=== PATIENT | female | born 1975 | race Caucasian/White ===

== ENCOUNTER → 2020-07-30 07:55 | Outpatient (CLI) | payer BC, SELFPAY ==
[2020-07-30 09:01] LABS: Chloride 100 mmol/L (98-107)
[2020-07-30 09:02] LABS: Basophils # 0.1 K/mm3 (0-0.2); Basophils % 0.9 % (0.1-2.0); Eosinophils # 0.4 K/mm3 (0.0-0.4); Eosinophils % 4.2 % (0.1-12.0); Hematocrit 45.6 % (37.0-47.0); Hemoglobin 14.5 g/dL (12.2-16.2); Lymphocytes % 19.6 % (10-50); Mean Corpuscular HGB Conc 31.9 g/dL (31.8-35.4); Mean Corpuscular Hemoglobin 27.3 pg (27.0-31.2); Mean Corpuscular Volume 85.6 fl (81-99); Mean Platelet Volume 7.6 fl (7.4-10.4); Monocytes # 0.5 K/mm3 (0.1-1.0); Monocytes % 4.5 % (1.7-9.3); Neutrophils # 7.2 K/mm3 (1.8-7.8); Neutrophils % 70.9 % (37.0-80.0); Platelet Count 333 K/mm3 (142-424); Red Blood Count 5.33 M/mm3 (4.20-5.40); Red Cell Distribution Width 14.9 % (11.5-17.5); Sodium 140 mmol/L (136-145); White Blood Count 10.2 K/mm3 (4.8-10.8)
[2020-07-30 09:04] LABS: Alanine Aminotransferase 12 U/L (12-78); Alkaline Phosphatase 72 U/L (38-126); Aspartate Amino Transferase 24 U/L (14-36); Bilirubin,Total 0.5 mg/dl (0.2-1.3); Blood Urea Nitrogen 19 mg/dl (7-17); Carbon Dioxide 33 mmol/L (22.0-30.0); Cholesterol 159 mg/dl (140-200); Estimated Glomerular Filt Rate 90 ml/min (>60); GFR (African American) 109 ML/MIN (>60); Triglycerides 83 mg/dl (30-150); VLDL Cholesterol 17 mg/dL (0-40)
[2020-07-30 09:05] LABS: Albumin Level 4.2 g/dl (3.5-5.0); Albumin/Globulin Ratio 1.9 (1.1-1.8); Chol/HDL Ratio 2.9 (1-3.5); Globulin 2.2 g/dL (1.3-3.2); Glucose 98 mg/dl (74-100); HDL Cholesterol 54 mg/dl (40-60); Iron 70 ug/dL (37-170); Total Protein,Serum 6.4 g/dl (6.3-8.2)
[2020-07-30 09:33] LABS: 25-OH Vitamin D, Total 26.1 ng/mL (30-100)
[2020-07-30 09:34] LABS: Direct LDL Cholesterol 95.79 mg/dL (100-129)
[2020-07-30 10:48] LABS: Folate 6.83 ng/mL; Vitamin B12 1000 pg/mL (239-931)
== END ==
PROVIDERS: Visit Provider Family Medicine
DX: I10 Essential (primary) hypertension (principal); F41.1 Generalized anxiety disorder; Z98.84 Bariatric surgery status
CPT/HCPCS: 36415; 80053; 80061; 82306; 82607; 82746; 83540; 85025

== ENCOUNTER → 2021-10-17 09:02 | Outpatient (CLI) | payer BC, SELFPAY ==
--- NOTE | 2021-10-18 10:10 | PC.NURSE ---
notified pt of positive covid swab
--- NOTE | 2021-10-18 12:07 | PC.NURSE ---
notified pt of positive COVID test results at this time
== END ==
PROVIDERS: PCP Family Medicine; Visit Provider Nurse Practitioner
DX: U07.1 COVID-19 (principal)
CPT/HCPCS: C9803; U0003; U0005

== ENCOUNTER → 2021-10-26 11:55 | Outpatient (CLI) | payer BC, SELFPAY | PROVIDERS: PCP Family Medicine; Visit Provider Nurse Practitioner | DX: U07.1 COVID-19 (principal) | CPT/HCPCS: C9803; U0003; U0005 ==

== ENCOUNTER → 2022-01-17 14:24 | Outpatient (CLI) | payer BC, SELFPAY ==
--- NOTE | 2022-01-17 14:32 | XR_ITS ---
FINAL REPORT CLINICAL HISTORY: SHOULDER PAIN FINDINGS: LEFT SHOULDER 3 views demonstrate no acute fracture or dislocation. There is mild AC joint degenerative change. The visualized bony structures are well aligned. No soft tissue abnormality is seen. IMPRESSION: Mild AC joint degenerative change. Reviewed, Interpreted and Dictated by Magdi Alonso III, MD Transcribed by Trace Montiel Authenticated by Magdi Alonso III, MD on 01/17/2022 03:39:58 PM [facility]
--- NOTE | 2022-01-17 14:32 | XR_ITS ---
FINAL REPORT CLINICAL HISTORY: SHOULDER PAIN FINDINGS: RIGHT SHOULDER 3 views demonstrate no acute fracture or dislocation. The joint spaces appear normal. The visualized bony structures are well aligned. No soft tissue abnormality is seen. IMPRESSION: No acute process. Reviewed, Interpreted and Dictated by Magdi Alonso III, MD Transcribed by Trace Montiel Authenticated by Magdi Alonso III, MD on 01/17/2022 03:39:45 PM [facility]
== END ==
LOC: RAD 14:26
PROVIDERS: PCP Nurse Practitioner Family; Visit Provider Nurse Practitioner Family
DX: M25.511 Pain in right shoulder (principal); M25.512 Pain in left shoulder
CPT/HCPCS: 73030

== ENCOUNTER → 2022-01-30 15:11 | Outpatient (CLI) | payer BC, SELFPAY ==
--- NOTE | 2022-01-30 15:13 | US_ITS ---
FINAL REPORT CLINICAL HISTORY: RT GROIN PAIN did not include tech note image in exam *Tech note: several lymph nodes in rt groin/area of pain. 1 enlarged lymph node. FINDINGS: ULTRASOUND SOFT TISSUE RIGHT GROIN Sonographic images of the soft tissues of the right groin were obtained. There are several lymph nodes in the right inguinal region. The largest measures 2 cm in length. These have the appearance of reactive nodes. No other mass is identified. There is no abnormal fluid collection. IMPRESSION: Several lymph nodes in the right inguinal region appear to be reactive nodes. Reviewed, Interpreted and Dictated by Magdi Alonso III, MD Transcribed by Denia Powell Authenticated by Magdi Alonso III, MD on 01/31/2022 09:17:32 AM [facility]
== END ==
PROVIDERS: PCP Nurse Practitioner Family; Visit Provider Nurse Practitioner Family
DX: R10.31 Right lower quadrant pain (principal)
CPT/HCPCS: 76882

== ENCOUNTER → 2022-02-15 07:35 | Outpatient (CLI) | payer BC, SELFPAY ==
--- NOTE | 2022-02-15 07:40 | CT_ITS ---
FINAL REPORT CLINICAL HISTORY: GROIN PAIN RT FINDINGS: CT OF THE ABDOMEN AND PELVIS WITH CONTRAST Axial CT images of the abdomen and pelvis were obtained after the administration of IV contrast. Coronal reformatted images were also obtained and reviewed.This study was performed with techniques to keep radiation doses as low as reasonably achievable (ALARA). Individualized dose reduction techniques using automated exposure control or adjustment of mA and/or kV according to the patient's size were employed. Abdomen: The lung bases are clear. The heart is normal in size. The liver has an unremarkable appearance, without evidence of mass or biliary ductal dilatation. There are large gallstones in the gallbladder with mild wall thickening and a small amount of Lia cholecystic fluid. Acute cholecystitis is not excluded. The spleen is unremarkable. No adrenal mass is present. The pancreas has an unremarkable appearance. The kidneys are normal, without evidence of mass or hydronephrosis. The aorta is normal in caliber. There is no free fluid or adenopathy. No mass or abnormal fluid collection is seen. There are postoperative changes in the left upper quadrant. Pelvis: The appendix is not well-visualized. The urinary bladder is unremarkable. An IUD is in the uterus. There are several small and borderline sized left inguinal lymph nodes with a nonspecific appearance and may be reactive. There is no evidence of bowel obstruction. IMPRESSION: Large gallstones within the gallbladder with mild wall thickening and a small amount of Lia cholecystic fluid. Acute cholecystitis not excluded. Nuclear medicine hepatic biliary scan may be helpful. Several small borderline size left inguinal lymph nodes with nonspecific appearance and may be reactive. Reviewed, Interpreted and Dictated by Magdi Alonso III, MD Transcribed by Lennie Gramajo Authenticated by Magdi Alonso III, MD on 02/15/2022 10:15:37 AM [facility]
== END ==
LOC: RAD 07:35
PROVIDERS: PCP Nurse Practitioner Family; Visit Provider Nurse Practitioner Family
DX: R10.31 Right lower quadrant pain (principal)
CPT/HCPCS: 74177; Q9967

== ENCOUNTER → 2022-03-15 16:29 | Outpatient (CLI) | payer BC, SELFPAY ==
--- NOTE | 2022-03-15 16:36 | XR_ITS ---
PROCEDURE INFORMATION: Exam: XR Right Hip Exam date and time: 03/15/2022 4:38 PM Age: 46 years old Clinical indication: Hip pain; Right hip; Patient HX: Pain for a long amount of time TECHNIQUE: Imaging protocol: XR Right hip. Views: 2 or 3 views hip with pelvis when performed. COMPARISON: CT ABDOMEN PELVIS W CON 02/15/2022 8:06 AM FINDINGS: Bones/joints: Mild bilateral hip joint space narrowing. Small right femoral head osteophytes. SI joints and pubic symphysis are unremarkable. No acute fracture or dislocation. Soft tissues: Unremarkable. Organs: IUD projects over the central pelvis. IMPRESSION: Mild bilateral hip degenerative change.
--- NOTE | 2022-03-15 16:37 | XR_ITS ---
PROCEDURE INFORMATION: Exam: XR Lumbosacral Spine Exam date and time: 03/15/2022 4:38 PM Age: 46 years old Clinical indication: Low back pain; Patient HX: No known injury TECHNIQUE: Imaging protocol: XR of the lumbosacral spine. Views: 2 or 3 views. COMPARISON: CT ABDOMEN PELVIS W CON 02/15/2022 8:06 AM FINDINGS: Bones/joints: No acute fracture or spondylolisthesis. Disc spaces are preserved. Minor endplate osteophyte formation at multiple levels. Mild facet arthrosis at L5-S1. The SI joints are unremarkable. Soft tissues: Unremarkable. IMPRESSION: Minor/mild degenerative changes.
== END ==
LOC: RAD 16:30
PROVIDERS: PCP Family Medicine; Visit Provider Physician Assistant
DX: M54.50 Low back pain, unspecified (principal); M25.551 Pain in right hip
CPT/HCPCS: 72100; 73502

== ENCOUNTER → 2022-05-16 10:57 | Outpatient (CLI) | payer BC, SELFPAY ==
--- NOTE | 2022-05-16 10:57 | FL_ITS ---
FINAL REPORT CLINICAL HISTORY: right hip injection fluoro time-0.37 FINDINGS: Right hip injection Clinical history: Right hip pain. Findings: Fluoroscopy was provided for clinical service and performance of right hip injection. 0.37 minutes of fluoroscopy time was provided. IMPRESSION: Fluoroscopy provided for clinical service for right hip injection. Films reviewed , interpreted and dictated by Dr. Alonso Transcribed by Kraig Kahn PA-C. Reviewed, Interpreted and Dictated by Magdi Alonso III, MD Transcribed by CHUYITA Pizarro Authenticated and [facility]
--- NOTE | 2022-05-17 01:01 | P.PCN_ITS ---
[facility] Procedure Note Procedure Note:: Date of Procedure: 05/16/2022 Pre-procedure diagnosis: Osteoarthritis, right hip Post-procedure diagnosis: Osteoarthritis, right hip Procedure: intraarticular corticosteroid injection, right hip Performed by: Westley Moseley MD Zinc Miner Blasting/s: none Anesthesia: local; 10 cc 1% lidocaine w/o epinephrine Estimated Blood Loss: none Procedure Note: The patient presented to the radiology department and changed into a gown. Consent was reviewed and signed by both myself and the patient, all questions were answered. The patient was placed supine on the fluoroscopy table and the right hip exposed. The lateral hip and proximal thigh were prepped with chlorhexidine. Timeout was performed. Next, the fluoro machine was brought in over the patient?s hip and a picture taken to confirm adequate visualization of the joint. I donned a pair of sterile surgical gloves; the remainder of the procedure was performed in a sterile fashion. A 22G spinal needle was held over the hip to approximate my desired entry point on the skin. Once this was established, a 25G needle was used to infiltrate injection site and estimated needle track with 10cc 1% lidocaine w/o epinephrine. Once the injection site was anesthetized, the spinal needle was advanced through the same puncture site and deeper towards the hip joint. Using fluoro guidance, it was confirmed that the needle was advanced until it was at the level of the femoral neck. The stylus was removed from the spinal needle and 3cc of iodinated contrast solution was injected through the spinal needle. Fluoro was taken again, and the dye confirmed intra-capsular placement of the spinal needle, indicating a successful intraarticular injection. The syringe with contrast was removed, keeping the spinal needle in place, and 40 mg of Kenalog with 4 cc 1% lidocaine w/o epinephrine was injected through the needle into the hip joint. A final fluoro picture was taken, confirming successful intraarticular injection. The spinal needle was removed from the hip and a band-aid was placed over the injection site. Patient tolerated the procedure well and there were no immediate complications. Patient reported very good pain relief within a few minutes after the injection. Specimens: none Condition/Disposition: good / home Complications: none
== END ==
LOC: RAD 10:57
PROVIDERS: PCP Family Medicine; Visit Provider Orthopaedic Surgery
DX: M25.551 Pain in right hip (principal)
CPT/HCPCS: 20610; 77002; Q9967

== ENCOUNTER → 2022-07-19 07:34 | Outpatient (CLI) | payer BC, SELFPAY ==
--- NOTE | 2022-07-19 07:35 | MM_ITS ---
PROCEDURE INFORMATION: Exam: Bilateral Screening 3D Mammography Exam date and time: 07/19/2022 7:50 AM Age: 47 years old Clinical indication: Screening examination TECHNIQUE: Imaging protocol: Bilateral Screening tomosynthesis and 2D mammography including computer-aided detection (CAD) when performed. COMPARISON: [facility] DIG MAMM-SCREEN AJIT 05/05/2014 8:47 AM FINDINGS: MAMMOGRAPHY: Breast composition: There are scattered areas of fibroglandular density. Mass: None. Architectural distortion: None. Calcifications: No suspicious calcifications. Asymmetric density: None. Skin thickening: None. Axillary adenopathy: None. IMPRESSION: No mammographic evidence of malignancy. Annual screening is recommended unless otherwise clinically indicated. ASSESSMENT: BI-RADS Category 1: Negative
== END ==
PROVIDERS: PCP Physician Assistant; Visit Provider Nurse Practitioner Obstetrics & Gynecology
DX: Z12.31 Encounter for screening mammogram for malignant neoplasm of breast (principal)
CPT/HCPCS: 77063; 77067

== ENCOUNTER 2022-07-27 17:00 | Outpatient (RCR) | payer BC, SELFPAY ==
--- NOTE | 2022-06-21 14:57 | HMH.PTOPEV ---
PT Outpatient Evaluation Rehab PT Outpatient Evaluation Start: 06/21/22 13:52 Freq: Status: Active Protocol: Document 06/21/22 14:05 SHANIACHARLA (Rec: 06/21/22 14:56 SHANIACHARLA [id number]) Electronically Signed By Omar Gottlieb PT 06/21/22 14:05 Outpatient Therapy Subjective History Subjective History This is the initial Physical Therapy evaluation for Sri CatrachitoWang. Pt is a 46 y/o female referred to PT for c/o R hip pain. Pt c/o R hip pain for ~ one and a half years. Pt reports insidious onset w/ no known trauma to hip. Pt does report she has had multiple scans of her hip which show degeneration per patient. Pt reports trouble w / ADL's and stairs. Pt does report when the pain stabs it can cause her RLE to buckle . Chief Complaint Pain,Stiff,Catches/Locks,Gives out/Unstable Symptom Type Ache,Sharp,Dull,Stabbing Symptoms Relieved By Nothing Symptoms Aggravated By Standing,Physical Activity, Twisting,Walking Prior Functional Limitations None Current Functional Limitations Housework,Dressing,Driving, Sleeping,Standing,Squatting, Recreation Activity,Walking, Stairs Symptom Description Intermittent Level of pain today (0-10) 2 Pain scale - at its best (0-10) 0 Pain scale - at its worst (0-10) 8 Hip/Knee Eval Gait Observation General Gait Pattern Observation Antalgic Gait,Decrease Weight Bear (R),Decrease Stride Lngth (R),Decrease Stride Lngth (L) Assistive Device Assistive Devices None / NA Palpation Tenderness right Hip Palpation Findings Tenderness,Muscle Guarding MMT Hip Strength Reason Not Measured WFL ROM Hip Internal Rotation Active Range of 1/2 opp side Motion (degrees) Hip Internal Rotation Passive Range of 1/2 opp side prone Motion (degrees) Hip ROM Limitations Soft Tissue Tightness,Bony Restrictions,Tightness on Right,Pain on Right Special Tests Hip Chyna Test Positive Right Hip 90-90 Straight Leg Raise Test Negative Right Sciatic Nerve Tension Test Negative Right Hip Scouring (Quadrant) Test Positi
== END 2022-07-27 17:05 | disposition home or self-care (01) ==
LOC: PT 17:00
PROVIDERS: PCP Family Medicine; Visit Provider Physician Assistant
DX: M25.551 Pain in right hip (principal)
CPT/HCPCS: 97110; 97163

== ENCOUNTER → 2022-07-30 06:54 | Outpatient (CLI) | payer BC, SELFPAY ==
[2022-07-30 07:58] LABS: Basophils # 0.2 K/mm3 (0-0.2); Basophils % 1.5 % (0.1-2.0); Eosinophils # 0.3 K/mm3 (0.0-0.4); Eosinophils % 2.5 % (0.1-12.0); Hematocrit 45.3 % (37.0-47.0); Hemoglobin 14.2 g/dL (12.2-16.2); Lymphocytes # 2.9 K/mm3 (0.7-4.5); Lymphocytes % 26.2 % (10-50); Mean Corpuscular HGB Conc 31.4 g/dL (31.8-35.4); Mean Corpuscular Hemoglobin 26.5 pg (27.0-31.2); Mean Corpuscular Volume 84.5 fl (81-99); Mean Platelet Volume 7.7 fl (7.4-10.4); Monocytes # 0.6 K/mm3 (0.1-1.0); Neutrophils # 7.3 K/mm3 (1.8-7.8); Neutrophils % 64.9 % (37.0-80.0); Platelet Count 513 K/mm3 (142-424); Red Blood Count 5.36 M/mm3 (4.20-5.40); Red Cell Distribution Width 14.6 % (11.5-17.5); White Blood Count 11.3 K/mm3 (4.8-10.8)
[2022-07-30 08:11] LABS: Chloride 105 mmol/L (98-107)
[2022-07-30 08:12] LABS: Potassium 4.5 mmoL/L (3.5-5.1); Sodium 140 mmol/L (136-145)
[2022-07-30 08:14] LABS: Alanine Aminotransferase 16 U/L (12-78); Albumin Level 4.1 g/dl (3.5-5.0); Albumin/Globulin Ratio 1.7 (1.1-1.8); Alkaline Phosphatase 148 U/L (38-126); Anion Gap 12.5 mEq/L (5-15); Aspartate Amino Transferase 26 U/L (14-36); Blood Urea Nitrogen 23 mg/dl (7-17); Carbon Dioxide 27 mmol/L (22.0-30.0); Estimated Glomerular Filt Rate 89 ml/min (>60); GFR (African American) 108 ML/MIN (>60); Globulin 2.4 g/dL (1.3-3.2); Total Protein,Serum 6.5 g/dl (6.3-8.2)
[2022-07-30 08:15] LABS: Bilirubin,Total 0.1 mg/dl (0.2-1.3); Calcium 8.9 mg/dl (8.4-10.2); Chol/HDL Ratio 3.2 (1-3.5); Cholesterol 160 mg/dl (140-200); Glucose 98 mg/dl (74-100); HDL Cholesterol 50 mg/dl (40-60); Triglycerides 69 mg/dl (30-150); VLDL Cholesterol 14 mg/dL (0-40)
[2022-07-30 08:32] LABS: Triiodothryronine (T3) Uptake 31 % (23.5-40.5)
[2022-07-30 08:33] LABS: Free Thyroxine Index 2.2 ug/dL (5.93-13.13); T4 (Thyroxine) 7.1 ug/dl (5.53-11.0)
[2022-07-30 08:46] LABS: Thyroid Stimulating Hormone 2.55 uIU/mL (0.465-4.68)
[2022-07-30 08:47] LABS: Direct LDL Cholesterol 92.23 mg/dL (100-129)
== END ==
PROVIDERS: PCP Family Medicine; Visit Provider Nurse Practitioner Obstetrics & Gynecology
DX: R53.83 Other fatigue (principal)
CPT/HCPCS: 36415; 80053; 80061; 84436; 84443; 84479; 85025

== ENCOUNTER → 2022-08-16 11:47 | Outpatient (CLI) | payer BC, SELFPAY ==
--- NOTE | 2022-08-16 11:48 | FL_ITS ---
FINAL REPORT CLINICAL HISTORY: 0.20 fluoro time Right hip steroid injection. Injected by Dr. Moseley FINDINGS: Fluoroscopy History:. Hip pain Findings: A total of 0.2 minutes of fluoroscopy time was provided by the radiology department for the clinical service. 3 fluoroscopic spot films were obtained for hip injection. IMPRESSION: Fluoroscopy time as above. Please see operative report. Films reviewed , interpreted and dictated by Dr. Bangura. Transcribed by Justino Gibson PA-C. Reviewed, Interpreted and Dictated by Marjorie Bangura MD Transcribed by CHUYITA Mcfadden Authenticated and [facility]
--- NOTE | 2022-08-16 16:47 | EXP.PROC.NOT ---
Procedure Procedure Procedure: Procedure Note:: Date of Procedure: 08/16/2022 Pre-procedure diagnosis: Osteoarthritis, right hip Post-procedure diagnosis: Osteoarthritis, right hip Procedure: intraarticular corticosteroid injection, right hip Performed by: Westley Moseley MD Sustainable Design Coordinator/s: none Anesthesia: local; 10 cc 1% lidocaine w/o epinephrine Estimated Blood Loss: none Procedure Note: The patient presented to the radiology department and changed into a gown. Consent was reviewed and signed by both myself and the patient; all questions were answered. The patient was placed supine on the fluoroscopy table and the right hip exposed. The lateral hip and proximal thigh were prepped with chlorhexidine. Timeout was performed. Next, the fluoro machine was brought in over the patient?s hip and a picture taken to confirm adequate visualization of the joint. I donned a pair of sterile surgical gloves; the remainder of the procedure was performed in a sterile fashion. A 22G spinal needle was held over the hip to approximate my desired entry point on the skin. Once this was established, a 25G needle was used to infiltrate injection site and estimated needle track with 10cc 1% lidocaine w/o epinephrine. Once the injection site was anesthetized, the spinal needle was advanced through the same puncture site and deeper towards the hip joint. Using fluoro guidance, it was confirmed that the needle was advanced until it was at the level of the femoral neck. The stylus was removed from the spinal needle and 1cc of iodinated contrast solution was injected through the spinal needle. Fluoro was taken again, and the dye confirmed intra-capsular placement of the spinal needle tip. The syringe with contrast was removed, keeping the spinal needle in place, and 6 mg of betamethasone with 4 cc 1% lidocaine w/o epinephrine was injected through the needle into the hip joint. A final fluoro picture was taken, confirming successful intraarticular injection. The spinal needle was removed from the hip and a band-aid was placed over the injection site. Patient tolerated the procedure well and there were no immediate complications. Patient reported very good pain relief within a few minutes after the injection. Specimens: none Condition/Disposition: good / home Complications: none
--- NOTE | 2022-08-17 15:05 | HMH.PROCNOTE ---
[facility] Procedure Note Date: 08/16/22 Procedure Note:: Date of Procedure: 08/16/2022 Pre-procedure diagnosis: Osteoarthritis, right hip Post-procedure diagnosis: Osteoarthritis, right hip Procedure: intraarticular corticosteroid injection, right hip Performed by: Westley Moseley MD Coil Winder Strap/s: none Anesthesia: local; 10 cc 1% lidocaine w/o epinephrine Estimated Blood Loss: none Procedure Note: The patient presented to the radiology department and changed into a gown. Consent was reviewed and signed by both myself and the patient, all questions were answered. The patient was placed supine on the fluoroscopy table and the right hip exposed. The lateral hip and proximal thigh were prepped with chlorhexidine. Timeout was performed. Next, the fluoro machine was brought in over the patient?s hip and a picture taken to confirm adequate visualization of the joint. I donned a pair of sterile surgical gloves; the remainder of the procedure was performed in a sterile fashion. A 22G spinal needle was held over the hip to approximate my desired entry point on the skin. Once this was established, a 25G needle was used to infiltrate injection site and estimated needle track with 10cc 1% lidocaine w/o epinephrine. Once the injection site was anesthetized, the spinal needle was advanced through the same puncture site and deeper towards the hip joint. Using fluoro guidance, it was confirmed that the needle was advanced until it was at the level of the femoral neck. The stylus was removed from the spinal needle and 1cc of iodinated contrast solution was injected through the spinal needle. Fluoro was taken again, and the dye confirmed intra-capsular placement of the spinal needle. The syringe with contrast was removed, keeping the spinal needle in place, and 6 mg of betamethasone with 4 cc 1% lidocaine w/o epinephrine was injected through the needle into the hip joint. A final fluoro picture was taken, confirming successful intraarticular injection. The spinal needle was removed from the hip and a band-aid was placed over the injection site. Patient tolerated the procedure well and there were no immediate complications. Patient reported very good pain relief within a few minutes after the injection. Specimens: none Condition/Disposition: good / home Complications: none
== END ==
LOC: RAD 11:48
PROVIDERS: PCP Orthopaedic Surgery; Visit Provider Orthopaedic Surgery
DX: M16.11 Unilateral primary osteoarthritis, right hip (principal)
CPT/HCPCS: 20610; 77002

== ENCOUNTER 2022-09-19 23:22 | Observation (INO) | payer BC, SELFPAY ==
[2022-09-19 23:22] VITALS: BP 119/67; PULSE 78; RESP 16; TEMP 36.6; O2SAT 97; BMI 29.0
--- NOTE | 2022-09-19 23:38 | CT_ITS ---
PROCEDURE INFORMATION: Exam: CT Abdomen And Pelvis With Contrast Exam date and time: 09/19/2022 11:46 PM Age: 47 years old Clinical indication: Abdominal pain; Localized; Prior surgery; Surgery type: Gastric bypass; Patient HX: C/O upper abd pain x3 days TECHNIQUE: Imaging protocol: Computed tomography of the abdomen and pelvis with contrast. Radiation optimization: All CT scans at this facility use at least one of these dose optimization techniques: automated exposure control; mA and/or kV adjustment per patient size (includes targeted exams where dose is matched to clinical indication); or iterative reconstruction. Contrast material: ISOVUE; Contrast volume: 75 ml; Contrast route: IV; COMPARISON: CT ABDOMEN PELVIS W CON 02/15/2022 8:06 AM FINDINGS: Liver: Normal. No mass. Gallbladder and bile ducts: Distended gallbladder with gallbladder wall thickening and calcified gallstones concerning for acute cholecystitis. Pancreas: Normal. No ductal dilation. Spleen: Normal. No splenomegaly. Adrenal glands: Normal. No mass. Kidneys and ureters: Normal. No hydronephrosis. Stomach and bowel: Postsurgical changes status post gastric bypass. No colitis or small bowel obstruction. Appendix: Normal appendix. Intraperitoneal space: Unremarkable. No free air. No significant fluid collection. Vasculature: Unremarkable. No abdominal aortic aneurysm. Lymph nodes: Unremarkable. No enlarged lymph nodes. Urinary bladder: Urinary bladder not well distended. Reproductive: IUD. Bones/joints: Unremarkable. No acute fracture. Soft tissues: Unremarkable. IMPRESSION: Distended gallbladder with gallbladder wall thickening and calcified gallstones concerning for acute cholecystitis.
[2022-09-19 23:45] LABS: Microscopic, Urine URINE MICROSCOPIC (MICROSCOPIC)
[2022-09-19 23:46] LABS: Appearance,Urine CLEAR (Clear); Bilirubin,Urine Negative (Negative); Blood, Urine TRACE-L (Negative); Color,Urine YELLOW (Yellow); Glucose,Urine (UA) 1+ (Negative); Ketones,Urine Negative (Negative); Leukocyte Esterase,Urine Negative (Negative); Nitrate,Urine Negative (Negative); Protein,Urine Negative (Negative); Specific Gravity, Urine >= 1.030 (1.005-1.030)
[2022-09-19 23:49] LABS: Urine Pregnancy, HCG Qual. Negative (Negative)
--- NOTE | 2022-09-19 23:54 | PC.NURSE ---
Pt gone to scan at this time
--- NOTE | 2022-09-19 23:56 | PC.NURSE ---
Pt back in room at this time
[2022-09-20] VITALS (18 sets, daily range): BP systolic 111–132; BP diastolic 55–71; PULSE 58–85; RESP 14–24; TEMP 36.6–43; O2SAT 93–99; BMI 29.3
[2022-09-20 00:02] LABS: Basophils # 0.1 K/mm3 (0-0.2); Eosinophils # 0.5 K/mm3 (0.0-0.4); Eosinophils % 3.3 % (0.1-12.0); Hematocrit 42.1 % (37.0-47.0); Hemoglobin 13.4 g/dL (12.2-16.2); Lymphocytes # 2.3 K/mm3 (0.7-4.5); Lymphocytes % 16.7 % (10-50); Mean Corpuscular Volume 84.4 fl (81-99); Mean Platelet Volume 7.7 fl (7.4-10.4); Monocytes # 0.7 K/mm3 (0.1-1.0); Neutrophils # 10.4 K/mm3 (1.8-7.8); Neutrophils % 74.1 % (37.0-80.0); Platelet Count 440 K/mm3 (142-424); Red Blood Count 4.98 M/mm3 (4.20-5.40); Red Cell Distribution Width 15.2 % (11.5-17.5)
[2022-09-20 00:03] LABS: RBC,Urine Occasional #/hpf (0-3)
[2022-09-20 00:03] LABS: Chloride 98 mmol/L (98-107); Potassium 3.2 mmoL/L (3.5-5.1); Sodium 140 mmol/L (136-145)
[2022-09-20 00:05] LABS: Amylase 56 U/L (30-110)
[2022-09-20 00:06] LABS: Alanine Aminotransferase 17 U/L (12-78); Albumin Level 4.1 g/dl (3.5-5.0); Albumin/Globulin Ratio 1.6 (1.1-1.8); Alkaline Phosphatase 108 U/L (38-126); Anion Gap 14.2 mEq/L (5-15); Aspartate Amino Transferase 25 U/L (14-36); Bilirubin,Total 0.3 mg/dl (0.2-1.3); Blood Urea Nitrogen 26 mg/dl (7-17); Calcium 9.4 mg/dl (8.4-10.2); Carbon Dioxide 31 mmol/L (22.0-30.0); Creatinine Clearance Estimated 146 mL/min (50-200); Estimated Glomerular Filt Rate 106 ml/min (>60); GFR (African American) 129 ML/MIN (>60); Globulin 2.5 g/dL (1.3-3.2); Glucose 76 mg/dl (74-100); Lipase 105 U/L (23-300); Total Protein,Serum 6.6 g/dl (6.3-8.2)
--- NOTE | 2022-09-20 00:52 | PC.NURSE ---
Rechecked pt condition. Pt provided with blanket. No other needs or complaints voiced.
--- NOTE | 2022-09-20 01:09 | HMH.EDABDPAI ---
Discharge Plan Disposition Patient Disposition: Admitted as Observation Chief Complaint: Abdominal Pain Prescriptions Prescriptions: No Action hydroxyzine HCl 25 mg tablet 25 mg PO aripiprazole 5 mg tablet 5 mg PO Referrals Follow up/Referrals: Cortez Blood MD [Primary Care Provider] - See instructions Clinical Impressions Clinical Impression: Cholecystitis with cholelithiasis, SIRS (systemic inflammatory response syndrome) Instructions Patient Instructions: DI for Acute Abdominal Pain Discharge ED Provider: Hussain Howard Abdominal Pain HPI General Chief Complaint: Abdominal Pain Stated Complaint: Abd Pain Time Seen by Provider: 09/20/22 01:09 Mode of Arrival: Ambulatory Source of Information: Patient and Medical Record Limitations: No Limitations Description of Symptoms (Recalled from ER Triage Doc. by RN): pt c/o RUQ pain with n/v/d that started 2 days History of Present Illness HPI narrative: upper abd pain with n/v MD complaint: abdominal pain Onset (ago): day(s) Consistency: intermittent Location: RUQ Severity: moderate Associated symptoms: denies other symptoms Related Data Home Medications Medication Instructions Recorded Confirmed aripiprazole 5 mg tablet 5 mg PO 07/19/22 09/19/22 hydroxyzine HCl 25 mg tablet 25 mg PO 07/19/22 09/19/22 escitalopram oxalate 20 mg tablet 20 mg PO DAILY Depression 09/20/22 09/20/22 lisinopril 10 mg tablet 10 mg PO DAILY High blood pressure 09/20/22 09/20/22 omeprazole 40 mg capsule,delayed 40 mg PO DAILY GERD 09/20/22 09/20/22 release Allergies Allergy/AdvReac Type Severity Reaction Status Date / Time No Known Allergies Allergy Verified 09/19/22 11:44 [facility] PFS Surgical History Hx of bariatric surgery Social History Smoking Status: Current every day smoker alcohol intake: never current occupational status: employed Travel in the last 8 weeks: None ROS Obtained: Yes All systems reviewed & no additional complaints except as documented Physical Exam General General appearance: alert Head Head exam: normocephalic Eye Eye exam: Present PERRL and EOMI; Absent scleral icterus ENT ENT exam: Present mucous membranes moist Neck Neck exam: Present full ROM Respiratory Respiratory exam: Present normal lung sounds bilaterally; Absent respiratory distress Cardiovascular Cardiovascular exam: Present regular rate Abdominal Exam Abdominal exam: Present soft, tenderness and Shelby's sign Abdominal tenderness: Present RUQ and moderate Extremities Exam Extremities exam: Present full ROM Neurological Exam Neurological exam: Present alert, oriented X3 and CN II-XII intact Psychiatric Psychiatric exam: Present normal affect Skin Skin exam: Absent rash Medical Decision Making Medical Records Medical records reviewed: Yes I reviewed the patient's medical records. Samuel Inquiry Pt receiving controlled substance: No Vital Signs: 09/19/22 23:22 Temperature 97.9 F Temperature Source Oral Pulse Rate [Right] 78 Respiratory Rate 16 Blood Pressure [Right Arm] 119/67 Blood Pressure Mean [Right Arm] 84 02 Sat by Pulse Oximetry 97 Lab Data Lab results reviewed: Yes I reviewed the patient's lab results. Lab Results 09/19/22 23:38: Urine Color Yellow, Urine Appearance Clear, Urine pH 6.0, Ur Specific [place] >= 1.030, Urine Protein Negative, Urine Glucose (UA) 1+, Urine Ketones Negative, Urine Blood Trace-l, Urine Nitrate Negative, Urine Bilirubin Negative, Urine Urobilinogen 1.0, Ur Leukocyte Esterase Negative, Urine RBC Occasional, Urine WBC None, Ur Squamous Epith Cells 3-5, Urine Bacteria None 09/19/22 23:38: Urine HCG, Qual Negative 09/19/22 23:49: WBC 14.0 H, RBC 4.98, Hgb 13.4, Hct 42.1, MCV 84.4, MCH 27.0, MCHC 32.0, RDW 15.2, Plt Count 440 H, MPV 7.7, Neut % (Auto) 74.1, Lymph % (Auto) 16.7, [place] % (Auto)
--- NOTE | 2022-09-20 01:17 | PC.NURSE ---
Dr. Court hill
--- NOTE | 2022-09-20 01:18 | PC.NURSE ---
Dr. Howard speaking to Dr. Yun
[2022-09-20 01:21] LABS: Coronavirus 19, PCR Not Detected (NotDetected); Influenza A, PCR Not Detected (NotDetected); Influenza B, PCR Not Detected (NotDetected)
--- NOTE | 2022-09-20 01:27 | US_ITS ---
FINAL REPORT CLINICAL HISTORY: abn ct- gb dis FINDINGS: Sonographic images of the right upper quadrant were obtained. The pancreas is partially obscured.The liver has an unremarkable appearance. There are gallstones within the gallbladder with gallbladder wall thickening measuring up to 11 mm. There is a small amount of Lia cholecystic fluid. There is no evidence of biliary ductal dilatation.The common duct measures 5 mm. Limited images of the right kidney are unremarkable. IMPRESSION: Cholelithiasis with gallbladder wall thickening and a small amount of pericholecystic fluid, worrisome for acute cholecystitis. Reviewed, Interpreted and Dictated by Magdi Alonso III, MD Transcribed by Lennie Gramajo Authenticated and [facility]
--- NOTE | 2022-09-20 03:30 | PC.NURSE ---
2nd attempt to call report on pt. pt nurse now on break.
--- NOTE | 2022-09-20 04:00 | PC.NURSE ---
patient up to floor via wheelchair @ this time.
[2022-09-20 06:49] LABS: Basophils # 0.1 K/mm3 (0-0.2); Basophils % 0.8 % (0.1-2.0); Eosinophils # 0.4 K/mm3 (0.0-0.4); Eosinophils % 3.5 % (0.1-12.0); Hematocrit 37.3 % (37.0-47.0); Lymphocytes # 2.2 K/mm3 (0.7-4.5); Lymphocytes % 21.6 % (10-50); Mean Corpuscular HGB Conc 31.5 g/dL (31.8-35.4); Mean Corpuscular Hemoglobin 26.6 pg (27.0-31.2); Mean Corpuscular Volume 84.6 fl (81-99); Monocytes # 0.5 K/mm3 (0.1-1.0); Monocytes % 4.8 % (1.7-9.3); Neutrophils # 7.1 K/mm3 (1.8-7.8); Neutrophils % 69.3 % (37.0-80.0); Platelet Count 382 K/mm3 (142-424); Red Cell Distribution Width 15.1 % (11.5-17.5); White Blood Count 10.2 K/mm3 (4.8-10.8)
[2022-09-20 06:59] LABS: Alanine Aminotransferase 11 U/L (12-78); Albumin Level 3.4 g/dl (3.5-5.0); Albumin/Globulin Ratio 1.5 (1.1-1.8); Alkaline Phosphatase 102 U/L (38-126); Aspartate Amino Transferase 20 U/L (14-36); Bilirubin,Total 0.3 mg/dl (0.2-1.3); Blood Urea Nitrogen 26 mg/dl (7-17); Calcium 8.6 mg/dl (8.4-10.2); Carbon Dioxide 31 mmol/L (22.0-30.0); Chloride 100 mmol/L (98-107); Chol/HDL Ratio 2.5 (1-3.5); Cholesterol 113 mg/dl (140-200); Creatinine Clearance Estimated 148 mL/min (50-200); Estimated Glomerular Filt Rate 106 ml/min (>60); GFR (African American) 129 ML/MIN (>60); Globulin 2.2 g/dL (1.3-3.2); Glucose 78 mg/dl (74-100); HDL Cholesterol 46 mg/dl (40-60); Sodium 136 mmol/L (136-145); Total Protein,Serum 5.6 g/dl (6.3-8.2); Triglycerides 42 mg/dl (30-150); VLDL Cholesterol 8 mg/dL (0-40)
[2022-09-20 07:05] LABS: Anion Gap 8.9 mEq/L (5-15); Potassium 3.9 mmoL/L (3.5-5.1)
[2022-09-20 07:10] LABS: Direct LDL Cholesterol 52.14 mg/dL (100-129)
--- NOTE | 2022-09-20 07:39 | EXP.SURG.CON ---
History of Present Illness *Admission Date: 09/20/22 *Reason for visit:: Abnormal gallbladder-cholecystitis *History of present illness: 47-year-old female. She presented to the emergency department early this morning with a 2-day history of intermittent abdominal pain in the right upper quadrant becoming more severe. Described as moderate. Work-up included CBC which revealed a white blood cell count of 14,000 with normal differential. Liver function tests normal. She underwent CT scan which revealed findings of distended gallbladder with gallbladder wall thickening and calcified gallstones. Patient states that she has a history of ulcer . She has had this for 10 years. She underwent laparoscopic gastric bypass 10 years ago in [place]. [facility] Surgical History Hx of bariatric surgery Social History (Updated 09/20/22 @ 04:16 by Breanne Holder RN) Smoking Status: Current every day smoker tobacco type: cigarettes Tobacco counseling given: patient declined alcohol intake: never current occupational status: employed Travel in the last 8 weeks: None Meds Home Medications and Allergies Home Medications Medication Instructions Recorded Confirmed Type aripiprazole 5 mg tablet 10 mg PO DAILY Depression 07/19/22 09/20/22 History hydroxyzine HCl 25 mg tablet 25 mg PO DAILY High blood pressure 07/19/22 09/20/22 History escitalopram oxalate 20 mg tablet 20 mg PO DAILY Depression 09/20/22 09/20/22 History lisinopril 10 mg tablet 10 mg PO DAILY High blood pressure 09/20/22 09/20/22 History omeprazole 40 mg capsule,delayed 40 mg PO DAILY GERD 09/20/22 09/20/22 History release New Prescriptions to Start Prescriptions: Allergies Allergy/AdvReac Type Severity Reaction Status Date / Time No Known Allergies Allergy Verified 09/19/22 11:44 Exam (Inpt) Vital signs and Labs for Last 24 Hours: Temp Pulse Resp BP Pulse Ox 97.9 F 60 18 123/63 97 09/20/22 04:49 09/20/22 04:49 09/20/22 04:49 09/20/22 04:49 09/20/22 04:49 Laboratory Results - last 24 hr 09/19/22 23:38: Urine Color Yellow, Urine Appearance Clear, Urine pH 6.0, Ur Specific [place] >= 1.030, Urine Protein Negative, Urine Glucose (UA) 1+, Urine Ketones Negative, Urine Blood Trace-l, Urine Nitrate Negative, Urine Bilirubin Negative, Urine Urobilinogen 1.0, Ur Leukocyte Esterase Negative, Urine RBC Occasional, Urine WBC None, Ur Squamous Epith Cells 3-5, Urine Bacteria None 09/19/22 23:38: Urine HCG, Qual Negative 09/19/22 23:49: WBC 14.0 H, RBC 4.98, Hgb 13.4, Hct 42.1, MCV 84.4, MCH 27.0, MCHC 32.0, RDW 15.2, Plt Count 440 H, MPV 7.7, Neut % (Auto) 74.1, Lymph % (Auto) 16.7, [place] % (Auto) 5.0, Eos % (Auto) 3.3, Baso % (Auto) 1.0, Neut # (Auto) 10.4 H, Lymph # (Auto) 2.3, [place] # (Auto) 0.7, Eos # (Auto) 0.5 H, Baso # (Auto) 0.1 09/19/22 23:49: Sodium 140, Potassium 3.2 L, Chloride 98, Carbon Dioxide 31 H, Anion Gap 14.2, BUN 26 H, Creatinine 0.60, Estimated Creat Clear 146, Estimated GFR 106, Est GFR ( Amer) 129, Glucose 76, Calcium 9.4, Total Bilirubin 0.3, AST 25, ALT 17, Alkaline Phosphatase 108, Total Protein 6.6, Albumin 4.1, Globulin 2.5, Albumin/Globulin Ratio 1.6, Amylase 56, Lipase 105 09/20/22 01:17: SARS-CoV-2 (PCR) Not detected, Influenza A Untype (PCR) Not detected, Influenza Type B (PCR) Not detected 09/20/22 06:03: Sodium 136, Potassium 3.9 D, Chloride 100, Carbon Dioxide 31 H, Anion Gap 8.9, BUN 26 H, Creatinine 0.60, Estimated Creat Clear 148, Estimated GFR 106, Est GFR ( Amer) 129, Glucose 78, Calcium 8.6, Total Bilirubin 0.3, AST 20, ALT 11 L D, Alkaline Phosphatase 102, Total Protein 5.6 L, Albumin 3.4 L D, Globulin 2.2, Albumin/Globulin Ratio 1.5, Triglycerides 42, Cholesterol 113 L, LDL Cholesterol Direct 52.14 L, VLDL Cholesterol 8, HDL Cholesterol 46, Cholesterol/HDL Ratio 2.5 I & O for Labs for Last 24 Hours: Intake & Output 09/17/22 09/18/22 09/19/22 1
[2022-09-20 07:57] LABS: Hemoglobin 11.7 g/dL (12.2-16.2)
--- NOTE | 2022-09-20 08:53 | EXP.HP ---
History of Present Illness *Admission Date: 09/20/22 *Reason for visit:: RUQ pain *History of present illness: 47-year-old female. She presented to the emergency department early this morning with a 2-day history of intermittent abdominal pain in the right upper quadrant becoming more severe. Described as moderate. Work-up included CBC which revealed a white blood cell count of 14,000 with normal differential. Liver function tests normal. She underwent CT scan which revealed findings of distended gallbladder with gallbladder wall thickening and calcified gallstones. Patient states that she has a history of ulcer . She has had this for 10 years. She underwent laparoscopic gastric bypass 10 years ago in [place]. (above as per Dr. Cool) [facility] Medical History (Updated 09/20/22 @ 09:00 by CHUYITA Barakat) Anxiety Drug addiction in remission Family history of drug addiction Hypertension Stomach ulcer Tobacco dependence Surgical History Hx of bariatric surgery Family History (Updated 09/20/22 @ 08:57 by CHUYITA Barakat) COPD (chronic obstructive pulmonary disease) Hypertension Social History (Updated 09/20/22 @ 04:16 by Breanne Holder RN) Smoking Status: Current every day smoker tobacco type: cigarettes Tobacco counseling given: patient declined alcohol intake: never current occupational status: employed Travel in the last 8 weeks: None Review of Systems Constitutional Constitutional: Denies fatigue, Denies headache(s) and Denies weakness Eyes Eyes: Denies blurry vision and Denies diplopia ENT Ears, Nose, Mouth, and Throat: Denies headache(s), Denies nasal congestion, Denies sore throat and Denies vertigo *Cardiovascular Cardiovascular: Denies chest pain, Reports dyspnea and Denies leg edema *Respiratory Respiratory: Denies cough and Reports dyspnea *Gastrointestinal Gastrointestinal: Reports abdominal pain (RUQ), Denies loose stools, Reports nausea and Denies vomiting *Genitourinary Genitourinary: Denies dysuria *Musculoskeletal Musculoskeletal: Denies arthralgias and Denies myalgias *Neurologic Neurologic: Denies headache(s), Denies vertigo and Denies weakness Endocrine Endocrine: Denies fatigue Meds Home Medications and Allergies Home Medications Medication Instructions Recorded Confirmed Type hydroxyzine HCl 25 mg tablet 25 mg PO QIDP PRN Anxiety 07/19/22 09/20/22 History aripiprazole 10 mg tablet 10 mg PO DAILY Anxiety 09/20/22 09/20/22 History escitalopram oxalate 20 mg tablet 20 mg PO DAILY Depression 09/20/22 09/20/22 History lisinopril 10 mg tablet 10 mg PO DAILY High blood pressure 09/20/22 09/20/22 History omeprazole 40 mg capsule,delayed 40 mg PO DAILY Acid reflux 09/20/22 09/20/22 History release New Prescriptions to Start Prescriptions: Allergies Allergy/AdvReac Type Severity Reaction Status Date / Time No Known Allergies Allergy Verified 09/19/22 11:44 Exam Data for Last 24 hours Vital signs and Labs for Last 24 Hours: Temp Pulse Resp BP Pulse Ox 97.9 F 60 18 123/63 97 09/20/22 04:49 09/20/22 04:49 09/20/22 04:49 09/20/22 04:49 09/20/22 04:49 Laboratory Results - last 24 hr 09/19/22 23:38: Urine Color Yellow, Urine Appearance Clear, Urine pH 6.0, Ur Specific [place] >= 1.030, Urine Protein Negative, Urine Glucose (UA) 1+, Urine Ketones Negative, Urine Blood Trace-l, Urine Nitrate Negative, Urine Bilirubin Negative, Urine Urobilinogen 1.0, Ur Leukocyte Esterase Negative, Urine RBC Occasional, Urine WBC None, Ur Squamous Epith Cells 3-5, Urine Bacteria None 09/19/22 23:38: Urine HCG, Qual Negative 09/19/22 23:49: WBC 14.0 H, RBC 4.98, Hgb 13.4, Hct 42.1, MCV 84.4, MCH 27.0, MCHC 32.0, RDW 15.2, Plt Count 440 H, MPV 7.7, Neut % (Auto) 74.1, Lymph % (Auto) 16.7, [place] % (Auto) 5.0, Eos % (Auto) 3.3, Baso % (Auto) 1.0, Neut # (Auto) 10.4 H, Lymph # (Auto) 2.3, [place] # (Auto) 0.7, Eos # (Aut
--- NOTE | 2022-09-20 09:01 | HMH.PHAINT1 ---
Pharmacy Intervention Comments: home medication list verified using list from outpatient pharmacy
--- NOTE | 2022-09-20 10:43 | HMH.PHAINT1 ---
Pharmacy Intervention Comments: MEDICATION RECONCILIATION COMPLETED ON PATIENT USING EXTERNAL FILL HISTORY FROM PHARMACY. -SABINA RIGGS, OMARID
--- NOTE | 2022-09-20 11:42 | EXP.ANES.CKL ---
[facility] PFS Medical History Anxiety Drug addiction in remission Family history of drug addiction Hypertension Stomach ulcer Tobacco dependence Surgical History Hx of bariatric surgery Family History Other COPD (chronic obstructive pulmonary disease) Hypertension Social History Smoking Status: Current every day smoker tobacco type: cigarettes alcohol intake: never substance use type: denies use current occupational status: employed Travel in the last 8 weeks: None [facility] Anesthesia Checklist Patient Identification Patient Identification: Arm Band and Verbal (Name & ) Structural Data Admitted From: Home Planned Operative Procedure/s: Lap. cholecystectomy Consent for Planned Operative Procedure(s) Verified: Yes NPO Status Verified Time NPO: 00:00 Chart Verification Results Verified: CBC and BMP Airway Assessment C-Spine Mobility Assessed: Yes TMJ Mobility Assessed: Yes Dentition: Edentulous Neurological Assessment Level of Consciousness: Awake Hx Seizures: No Numbness or tingling in extremities: No Anesthesia Plan Anesthesia Risk discussed: Yes Anesthesia Plan: Verified ASA Class: III Anesthesia Type: General
--- NOTE | 2022-09-20 13:35 | EXP.OP.NOTE ---
Date of procedure: 09/20/22 Pre-op Diagnosis:: Acute cholecystitis Post-op Diagnosis:: Same Procedure performed:: Laparoscopic cholecystectomy Surgeon:: Magdi Cool MD Anesthesia: JANIS Estimated blood loss (mL): 15 Clinical Note:: 47-year-old female. She presented to the emergency department early this morning with a 2-day history of intermittent abdominal pain in the right upper quadrant becoming more severe. Described as moderate then becoming more severe. Work-up included CBC which revealed a white blood cell count of 14,000 with normal differential. Liver function tests normal. She underwent CT scan which revealed findings of distended gallbladder with gallbladder wall thickening and calcified gallstones. Patient states that she has a history of ulcer . She has had this for 10 years according to her. She underwent laparoscopic gastric bypass 10 years ago in [place]. She was admitted for inpatient management and surgical consultation. She was found to have some tenderness in the right upper quadrant. She underwent gallbladder ultrasound which revealed findings of cholelithiasis with gallbladder wall thickening and small amount of pericholecystic fluid, worrisome for acute cholecystitis. Patient continued to have some right upper quadrant tenderness and the options were discussed with her. Plan was made to proceed with cholecystectomy. Operative findings:: She had a distended gallbladder with acute edema and findings of hydrops of the gallbladder consistent with acute, noninfected, nonnecrotic cholecystitis. There were a couple of moderate stones. She did have a rather short cystic duct and quite prominent common bile duct. Operative note:: Patient was taken to the operating room. She was given preoperative intravenous antibiotics. In the operating room she was placed in a supine position. General anesthesia was induced via endotracheal tube. Abdomen was prepped and draped in the standard surgical fashion. Subumbilical skin incision was made and while performing abdominal wall lift Veress needle was inserted. CO2 pneumoperitoneum was achieved to 15 mmHg. 11 mm optical trocar was inserted at the umbilicus. Intraperitoneal contents were visualized. She was noted to have quite a distended gallbladder. She was positioned in reverse Trendelenburg left side down. A couple of 5 mm trochars were inserted in the right upper abdomen. 10 mm trocar was inserted in the epigastrium. Due to the significant distention and tense nature of the gallbladder area was aspirated using the laparoscopic needle aspirator. Clear fluid was aspirated from the gallbladder consistent with hydropic gallbladder. Gallbladder was then grasped retracted anteriorly and superiorly over the dome of the liver. There was acute edema of the gallbladder. She had a rather prominent common bile duct which was tented up near the neck of the gallbladder. The infundibulum of the gallbladder was retracted anterior laterally. Blunt dissection was carried out at the neck of the gallbladder bluntly incising the visceral peritoneum. Careful dissection was carried out ultimately identifying the cystic duct and cystic artery. Cystic duct was rather shortened. Cystic duct was isolated, multiply clipped, and sharply divided. Cystic artery was carefully coagulated with [employer] ultrasonic robotic johnson and divided. Gallbladder was dissected free from the liver in a retrograde fashion using GEMMA ultrasonic harmonic johnson. Gallbladder was placed within an Endo Catch retrieval device removed from the peritoneal cavity via the umbilical trocar site which required some extension of the fascial and skin incision for delivery of the large gallbladder with large stones. Some limited use of electrocautery was used on the gallbladder fossa to ensure hemostasis. Fluid was suctioned free. Trochars were then removed as CO2 pneumoperitoneum was evacuated. Fascia at the umbilicus was closed with
--- NOTE | 2022-09-20 13:58 | EXP.ANES.I ---
[facility] Anesthesia Record Part I Anesthesia Record I Intake, IV Amount: 1,000 Estimated blood loss (mL): 3 Urine output (mL): 0 Blood Products used (#): none Blood Pressure: 132/62 SaO2: 93 Pulse Rate: 85 Respiratory Rate: 24 Temperature: 97.8 F Patient is:: Drowsy and Stable Stable to PACU at:: 13:43
--- NOTE | 2022-09-20 17:38 | EXP.ACUTE.PN ---
Subjective *Date: 09/20/22 *Time: 17:42 Interval history: Patient feels well post surgery, she ate most of her supper and is anxious to go home. Medical Exam Vital signs and Labs for Last 24 Hours: Vital Signs Temp Pulse Pulse Pulse Resp BP BP 09/20/22 17:00 58 L 20 114/59 L 09/20/22 16:30 70 20 111/59 L 09/20/22 16:00 68 18 122/65 09/20/22 15:30 68 20 121/64 09/20/22 15:00 66 20 119/64 09/20/22 14:45 64 18 123/61 09/20/22 14:30 98.1 F 66 20 132/67 09/20/22 14:15 98.2 F 74 18 130/57 L 09/20/22 14:13 72 16 127/71 09/20/22 14:03 72 16 126/67 09/20/22 13:53 74 16 126/57 L 09/20/22 13:43 97.8 F 79 14 125/65 09/20/22 08:00 98.4 F 60 14 09/20/22 04:49 97.9 F 60 18 09/20/22 03:36 97.9 F 59 L 16 127/67 09/20/22 01:00 62 116/58 L 09/19/22 23:22 97.9 F 78 16 09/20/22 14:00 97.8 F 85 24 132/62 BP Pulse Ox 09/20/22 17:00 97 09/20/22 16:30 96 09/20/22 16:00 96 09/20/22 15:30 96 09/20/22 15:00 96 09/20/22 14:45 97 09/20/22 14:30 98 09/20/22 14:15 98 09/20/22 14:13 96 09/20/22 14:03 98 09/20/22 13:53 94 L 09/20/22 13:43 95 09/20/22 08:00 126/55 L 99 09/20/22 04:49 123/63 97 09/20/22 03:36 09/20/22 01:00 96 09/19/22 23:22 119/67 97 09/20/22 14:00 Intake and Output 09/20/22 09/20/22 09/20/22 07:59 15:59 23:59 Intake Total 1260 / 1260 Balance 1260 / 1260 Intake: Intake, Total IV Amount 1260 / 1260 0.9 % Sodium Chloride 1,000 ml 260 / 260 @ 100 mls/hr IV .Q10H [facility] Rx#: [id number] Other: Weight 182 lb 9.6 oz Patient Weight 09/20/22 23:59 Weight 182 lb 9.6 oz Laboratory Results - last 24 hr 09/19/22 23:38: Urine Color Yellow, Urine Appearance Clear, Urine pH 6.0, Ur Specific [place] >= 1.030, Urine Protein Negative, Urine Glucose (UA) 1+, Urine Ketones Negative, Urine Blood Trace-l, Urine Nitrate Negative, Urine Bilirubin Negative, Urine Urobilinogen 1.0, Ur Leukocyte Esterase Negative, Urine RBC Occasional, Urine WBC None, Ur Squamous Epith Cells 3-5, Urine Bacteria None 09/19/22 23:38: Urine HCG, Qual Negative 09/19/22 23:49: WBC 14.0 H, RBC 4.98, Hgb 13.4, Hct 42.1, MCV 84.4, MCH 27.0, MCHC 32.0, RDW 15.2, Plt Count 440 H, MPV 7.7, Neut % (Auto) 74.1, Lymph % (Auto) 16.7, [place] % (Auto) 5.0, Eos % (Auto) 3.3, Baso % (Auto) 1.0, Neut # (Auto) 10.4 H, Lymph # (Auto) 2.3, [place] # (Auto) 0.7, Eos # (Auto) 0.5 H, Baso # (Auto) 0.1 09/19/22 23:49: Sodium 140, Potassium 3.2 L, Chloride 98, Carbon Dioxide 31 H, Anion Gap 14.2, BUN 26 H, Creatinine 0.60, Estimated Creat Clear 146, Estimated GFR 106, Est GFR ( Amer) 129, Glucose 76, Calcium 9.4, Total Bilirubin 0.3, AST 25, ALT 17, Alkaline Phosphatase 108, Total Protein 6.6, Albumin 4.1, Globulin 2.5, Albumin/Globulin Ratio 1.6, Amylase 56, Lipase 105 09/20/22 01:17: SARS-CoV-2 (PCR) Not detected, Influenza A Untype (PCR) Not detected, Influenza Type B (PCR) Not detected 09/20/22 06:03: WBC 10.2 D, RBC 4.40, Hgb 11.7 L D, Hct 37.3, MCV 84.6, MCH 26.6 L, MCHC 31.5 L, RDW 15.1, Plt Count 382, MPV 8.0, Neut % (Auto) 69.3, Lymph % (Auto) 21.6, [place] % (Auto) 4.8, Eos % (Auto) 3.5, Baso % (Auto) 0.8, Neut # (Auto) 7.1, Lymph # (Auto) 2.2, [place] # (Auto) 0.5, Eos # (Auto) 0.4, Baso # (Auto) 0.1 09/20/22 06:03: Sodium 136, Potassium 3.9 D, Chloride 100, Carbon Dioxide 31 H, Anion Gap 8.9, BUN 26 H, Creatinine 0.60, Estimated Creat Clear 148, Estimated GFR 106, Est GFR ( Amer) 129, Glucose 78, Calcium 8.6, Total Bilirubin 0.3, AST 20, ALT 11 L D, Alkaline Phosphatase 102, Total Protein 5.6 L, Albumin 3.4 L D, Globulin 2.2, Albumin/Globulin Ratio 1.5, Triglycerides 42, Cholesterol 113 L, LDL Cholesterol Direct 52.14 L, VLDL Cholesterol 8, HDL Cholesterol 46, Cholesterol/HDL Ratio 2.5 I & O for Labs for Last 24 Hours: Intake & Output 09/17/22 09/18/22 1
--- NOTE | 2022-09-20 18:20 | PC.NURSE ---
PT IS BEING DISCHARGED HOME. PT STATES SHE FEELS GOOD. TOLERATED BLAND DIET. DRESSING TO UMBILICAL SITE WAS CHANGED BEFORE DISCHARGE. LUNG SOUNDS CLEAR. ABDOMEN SOFT WITH SOME MILD TENDERNESS AT SURGICAL SITES. PT HAS BEEN AMBULATING IN THE [place].
--- NOTE | 2022-09-21 13:08 | CARE MANAGER ---
Contacted patient related to hospital discharge. Provided her with Dr. Cool's phone number so she can make a follow up appointment. She states she feels very well and denies any other questions or concerns. MARILOU Ramesh
--- NOTE | 2022-09-21 13:25 | EXP.ANES.II ---
[facility] Anesthesia Record Part II Anesthesia Record Part II Discharge Time: 14:13 Destination: Surgical Day Care (OP Surgery) PACU nurse assessment reviewed?: Yes Patient Condition:: Good Anesthesia Complications:: None Swallowing reflex intact?: Yes Cyanosis?: No Blood Pressure: 127/71 Pulse Rate: 72 Temperature: 97.8 F Mental Status: Alert & Oriented Pain level:: 0 Nausea and/or vomitting:: None Intake, IV Amount: 0
[2022-09-21 13:26] VITALS: BP 127/71; PULSE 72; TEMP 36.6
--- NOTE | 2022-09-24 14:29 | EXP.DC.SUM ---
General Admission date:: 09/20/22 Discharge date: 09/20/22 HPI HPI HPI: 47-year-old female. She presented to the emergency department early this morning with a 2-day history of intermittent abdominal pain in the right upper quadrant becoming more severe. Described as moderate. Work-up included CBC which revealed a white blood cell count of 14,000 with normal differential. Liver function tests normal. She underwent CT scan which revealed findings of distended gallbladder with gallbladder wall thickening and calcified gallstones. Patient states that she has a history of ulcer . She has had this for 10 years. She underwent laparoscopic gastric bypass 10 years ago in [place]. (above as per Dr. Cool) Hospital Course Hospital Course Hospital Course: The patient was admitted for pain control and antiemetics. Surgery was consulted and she was seen by Dr. Cool who wanted a right upper quadrant ultrasound. The ultrasound showed cholelithiasis with gallbladder wall thickening worrisome for cholecystitis. The patient was taken to the OR for cholecystectomy. She tolerated the procedure well and by the evening of 09/20/2022, she was eating and anxious to go home. She was stable to be discharged and will follow up with Dr. Cool in 1 week. Exam Data for Last 24 hours Vital signs and Labs for Last 24 Hours: Temp Pulse Resp BP Pulse Ox 97.8 F 72 20 127/71 97 09/21/22 13:26 09/21/22 13:26 09/20/22 17:00 09/21/22 13:26 09/20/22 17:00 I & O for Last 24 hours: Intake & Output 09/22/22 09/23/22 09/24/22 09/25/22 12:59 11:59 11:59 11:59 Intake Total Balance Narrative: Constitutional Constitutional: no acute distress *Routine HEENT Exam Head: Present normocephalic and atraumatic Eye: Present EOMI and PERRL ENT: Present mucous membranes moist *Routine Neck Exam Neck: Present supple and full ROM *Routine Respiratory Exam Respiratory: Present CTA bilaterally *Routine Cardiovascular Exam Cardiovascular: Present RRR *Routine Abdominal Exam Abdominal: Present soft, normoactive bowel sounds and tenderness (RUQ) *Routine Rectal Exam Rectal:: deferred *Routine Genitalia Exam Genitalia:: deferred *Routine Extremities Exam Extremities: Absent cyanosis, clubbing or edema *Routine Skin Exam Skin: Present intact; Absent erythema *Routine Neurological Exam Neurological: Present alert and oriented X3 DS: Diagnosis Discharge Diagnosis (1) Cholecystitis with cholelithiasis: Status: Acute (2) Tobacco dependence: Status: Acute (3) Stomach ulcer: Status: Acute (4) Anxiety: Status: Acute (5) Hypertension: Status: Acute (6) Drug addiction in remission: Status: Acute (7) S/P laparoscopic cholecystectomy: Status: Acute Meds Home Medications and Allergies Home Medications Medication Instructions Recorded Confirmed Type hydroxyzine HCl 25 mg tablet 25 mg PO QIDP PRN Anxiety 07/19/22 09/20/22 History aripiprazole 10 mg tablet 10 mg PO DAILY Anxiety 09/20/22 09/20/22 History escitalopram oxalate 20 mg tablet 20 mg PO DAILY Depression 09/20/22 09/20/22 History hydrochlorothiazide 25 mg tablet 25 mg PO DAILY Fluid 09/20/22 09/20/22 History lisinopril 10 mg tablet 10 mg PO DAILY Hypertension 09/20/22 09/20/22 History omeprazole 40 mg capsule,delayed 40 mg PO DAILY acid reflux 09/20/22 09/20/22 History release New Prescriptions to Start Prescriptions: Allergies Allergy/AdvReac Type Severity Reaction Status Date / Time No Known Allergies Allergy Verified 09/19/22 11:44 Discharge Plan Disposition Patient Disposition: Home, Self-Care Condition: Good Follow up Plan Follow up with: Magdi Cool MD [Staff Physician] - 09/27/22 Prescriptions/Medication Reconciliation: Continued hydroxyzine HCl 25 mg tablet 25 mg PO QIDP PRN (Reason: Anxiety) omeprazole 40 mg capsule,delayed release(DR/EC) 40 mg PO DAILY Labe
== END 2022-09-20 18:34 | disposition home or self-care (01) ==
LOC: ER 09-20 01:22 → 2ND 09-20 02:01
PROVIDERS: Surgery; Admitting Provider Internal Medicine Adolescent Medicine; Emergency Provider Emergency Medicine; PCP Family Medicine; Visit Provider Family Medicine
PROC: 0FT44ZZ Resection of Gallbladder, Percutaneous Endoscopic Approach (ICD-10-PCS; CPT 47562; principal; 2022-09-20 12:00)
DX: K82.1 Hydrops of gallbladder (principal); K80.10 Calculus of gallbladder with chronic cholecystitis without obstruction; F17.210 Nicotine dependence, cigarettes, uncomplicated; K25.9 Gastric ulcer, unspecified as acute or chronic, without hemorrhage or perforation; F41.9 Anxiety disorder, unspecified; I10 Essential (primary) hypertension; F19.21 Other psychoactive substance dependence, in remission; Z79.899 Other long term (current) drug therapy
CPT/HCPCS: 47562; 36415; 74177; 76705; 80053; 80061; 81001; 81025; 82150; 83690; 85025; 88304; 99285; C9803; G0378; J1335; J2405; Q9967; U0003; U0005

== ENCOUNTER 2023-02-16 12:04 | Emergency (ER) | payer BC, SELFPAY ==
[2023-02-16 12:15] VITALS: BP 128/52; PULSE 70; RESP 20; TEMP 37.1; O2SAT 99; BMI 29.0
--- NOTE | 2023-02-16 12:33 | EXP.UTC ---
Discharge Plan Disposition Patient Disposition: Home, Self-Care Condition: Good Prescriptions Prescriptions: New amoxicillin [amoxicillin] 500 mg tablet 500 mg PO BID 10 Days Qty: 20 0RF No Action hydroxyzine HCl 25 mg tablet 25 mg PO QIDP PRN (Reason: Anxiety) omeprazole 40 mg capsule,delayed release(DR/EC) 40 mg PO DAILY Label Comments: TAKE 1 CAPSULE BY MOUTH ONCE DAILY lisinopril 10 mg tablet 10 mg PO DAILY Label Comments: TAKE 1 TABLET BY MOUTH ONCE DAILY escitalopram oxalate 20 mg tablet 20 mg PO DAILY Label Comments: TAKE 1 TABLET BY MOUTH ONCE DAILY aripiprazole 10 mg tablet 10 mg PO DAILY Label Comments: TAKE 1 TABLET BY MOUTH ONCE DAILY hydrochlorothiazide 25 mg tablet 25 mg PO DAILY Label Comments: TAKE 1 TABLET BY MOUTH ONCE DAILY Referrals Follow up/Referrals: Bernice Flores PA [Primary Care Provider] - See instructions Activity Restrictions/Add. Instructions Additional Instructions/Restrictions: Start antibiotic as soon as possible and be sure to take as ordered for full length of time even though he should start feeling better in 24-48 hours. Tylenol or Motrin as needed for pain or fever Encourage fluids, water, Gatorade, Powerade, Pedialyte if infant/toddler/child Warm compresses often helps when placed over ear Return immediately for new or worsening symptoms no noticeable improvement in 48-72 hours and in 10-14 days to ensure the ears are return to baseline. Follow-up with primary care Clinical Impressions Clinical Impression: Otitis media Instructions Patient Instructions: Middle Ear Infection Discharge ED Provider: Tres ([facility])[place] HPI General Stated complaint: ear pain Mode of Arrival: Ambulatory Source of Information: Patient Limitations: No Limitations Time Seen by Provider: 02/16/23 12:33 Description of Symptoms (Recalled from Triage Doc. by RN): PATIENT C/O EAR ACHE AND HEADACHE X 2 DAYS HEENT Symptoms (Recalled from RN notes): Yes Resp Symptoms (Recalled from RN notes): No Skin Symptoms (Recalled from RN notes): No MS Symptoms (Recalled from RN notes): No Functional Status (Recalled from RN notes): WNL History of Present Illness Provider Complaint: 47 yr old female presents for ellie ear pain and headache for 2 days Related Data Home Medications Medication Instructions Recorded Confirmed hydroxyzine HCl 25 mg tablet 25 mg PO QIDP PRN Anxiety 07/19/22 09/27/22 aripiprazole 10 mg tablet 10 mg PO DAILY Anxiety 09/20/22 09/27/22 escitalopram oxalate 20 mg tablet 20 mg PO DAILY Depression 09/20/22 09/27/22 hydrochlorothiazide 25 mg tablet 25 mg PO DAILY Fluid 09/20/22 09/27/22 lisinopril 10 mg tablet 10 mg PO DAILY Hypertension 09/20/22 09/27/22 omeprazole 40 mg capsule,delayed 40 mg PO DAILY acid reflux 09/20/22 09/27/22 release Previous Rx's Medication Instructions Recorded amoxicillin 500 mg tablet 500 mg PO BID 10 days #20 tabs 02/16/23 Allergies Allergy/AdvReac Type Severity Reaction Status Date / Time No Known Allergies Allergy Verified 09/27/22 09:54 Worker's Comp Is this a Worker's Comp case?: No [facility] Disclaimer: The information contained in this section may have been updated after the patient was seen, as this information can be updated by other users. 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
[2023-02-16 13:01] VITALS: BP 128/52; PULSE 70; RESP 20; TEMP 37.1; O2SAT 99
== END 2023-02-16 13:09 | disposition home or self-care (01) ==
PROVIDERS: Emergency Provider Nurse Practitioner Family; PCP Physician Assistant
DX: H66.93 Otitis media, unspecified, bilateral (principal); R51.9 Headache, unspecified; F17.210 Nicotine dependence, cigarettes, uncomplicated; Z98.84 Bariatric surgery status
CPT/HCPCS: 99212; 99214; G0463

== ENCOUNTER → 2023-11-15 15:23 | Outpatient (CLI) | payer BC, SELFPAY ==
--- NOTE | 2023-11-15 15:26 | XR_ITS ---
FINAL REPORT CLINICAL HISTORY: LOW BACK INJURY FINDINGS: LUMBAR SPINE Five views demonstrate no acute fracture. The disc spaces are well preserved. There is no malalignment. The facets are properly aligned. Right hip prosthesis is identified. An IUD is identified. IMPRESSION: No acute process. Reviewed, Interpreted and Dictated by Chris Nj MD Transcribed by Shaila Woodard Authenticated and [facility]
== END ==
LOC: RAD 15:24
PROVIDERS: PCP Physician Assistant; Visit Provider Physician Assistant
DX: S39.92XA Unspecified injury of lower back, initial encounter (principal); Y99.9 Unspecified external cause status
CPT/HCPCS: 72110

== ENCOUNTER 2023-11-30 10:27 | Outpatient (CLI) | payer BC, SELFPAY ==
--- NOTE | 2023-11-30 10:59 | ECG_ITS ---
APPROVED REPORT Exam: Resting ECG HR:62 bpm ECG Measurements Heart Rate 62 AXES NC 147 P 63 QRSd 85 QRS 66 QT 420 T 50 QTc 426 Conclusion SINUS RHYTHM NORMAL ECG UNCONFIRMED REPORT Electronically signed by : Pedro Yun MD 12/01/2023 15:13:08
[2023-11-30 11:03] LABS: Basophils # 0.1 K/mm3 (0-0.2); Basophils % 0.9 % (0.1-2.0); Eosinophils # 0.3 K/mm3 (0.0-0.4); Eosinophils % 4.1 % (0.1-12.0); Hemoglobin 12.7 g/dL (12.2-16.2); Lymphocytes # 2.3 K/mm3 (0.7-4.5); Lymphocytes % 34.7 % (10-50); Mean Corpuscular HGB Conc 31.7 g/dL (31.8-35.4); Mean Corpuscular Hemoglobin 24.5 pg (27.0-31.2); Mean Corpuscular Volume 77.4 fl (81-99); Mean Platelet Volume 7.8 fl (7.4-10.4); Monocytes # 0.4 K/mm3 (0.1-1.0); Monocytes % 5.2 % (1.7-9.3); Neutrophils # 3.7 K/mm3 (1.8-7.8); Neutrophils % 55.1 % (37.0-80.0); Platelet Count 396 K/mm3 (142-424); Red Blood Count 5.17 M/mm3 (4.20-5.40); Red Cell Distribution Width 16.1 % (11.5-17.5); White Blood Count 6.7 K/mm3 (4.8-10.8)
[2023-11-30 11:22] LABS: Chloride 104 mmol/L (98-107)
[2023-11-30 11:23] LABS: Potassium 4.9 mmoL/L (3.5-5.1); Sodium 139 mmol/L (136-145)
[2023-11-30 11:25] LABS: Alanine Aminotransferase 15 U/L (12-78); Alkaline Phosphatase 141 U/L (38-126); Amylase 55 U/L (30-110); Anion Gap 10.9 mEq/L (5-15); Aspartate Amino Transferase 24 U/L (14-36); Bilirubin,Total 0.3 mg/dl (0.2-1.3); Blood Urea Nitrogen 23 mg/dl (7-17); Carbon Dioxide 29 mmol/L (22.0-30.0); Estimated Glomerular Filt Rate 76 ml/min (>60); GFR (African American) 92 ML/MIN (>60); Lipase 187 U/L (23-300); Phosphorous 4.2 mg/dl (2.5-4.5)
[2023-11-30 11:26] LABS: Albumin Level 4.1 g/dl (3.5-5.0); Albumin/Globulin Ratio 1.8 (1.1-1.8); Calcium 9.2 mg/dl (8.4-10.2); Globulin 2.3 g/dL (1.3-3.2); Glucose 102 mg/dl (74-100); Magnesium 1.9 mg/dl (1.6-2.3); Total Protein,Serum 6.4 g/dl (6.3-8.2)
[2023-11-30 11:53] LABS: Thyroid Stimulating Hormone 0.88 uIU/mL (0.465-4.68)
== END 2023-11-30 23:59 ==
LOC: RT 10:28
PROVIDERS: PCP Physician Assistant; Visit Provider Family Medicine
DX: R00.2 Palpitations (principal); R11.0 Nausea; R25.2 Cramp and spasm
CPT/HCPCS: 36415; 80053; 82150; 83690; 83735; 84100; 84443; 85025; 93005

== ENCOUNTER 2024-03-12 07:06 | Outpatient (CLI) | payer BC, SELFPAY ==
[2024-03-12 09:15] LABS: T4 (Thyroxine) 5.8 ug/dl (5.53-11.0)
[2024-03-12 09:58] LABS: Triiodothryronine (T3) Uptake 34 % (23.5-40.5)
--- NOTE | 2024-03-12 10:20 | MM_ITS ---
PROCEDURE INFORMATION: Exam: MG Bilateral Screening 3D Mammography Exam date and time: 03/12/2024 10:18 AM Age: 48 years old Clinical indication: Screening examination TECHNIQUE: Imaging protocol: Bilateral Screening tomosynthesis and 2D mammography including computer-aided detection (CAD) when performed. COMPARISON: 1. MG MM DIG SCREENING MAMM BI W/CAD 07/19/2022 7:50 AM 2. MG DMSB DIG MAMM-SCREEN AJIT 05/05/2014 8:47 AM FINDINGS: MAMMOGRAPHY: Breast composition: There are scattered areas of fibroglandular density. Mass: None. Architectural distortion: None. Calcifications: No suspicious calcifications. Asymmetric density: None. Skin thickening: None. Axillary adenopathy: None. IMPRESSION: No mammographic evidence of malignancy. Annual screening is recommended unless otherwise clinically indicated. ASSESSMENT: BI-RADS Category 1: Negative
[2024-03-13 08:20] LABS: FSH 53.1 mIU/mL (.); LH 26.4 mIU/mL (.)
== END 2024-03-12 23:59 | disposition home or self-care (01) ==
PROVIDERS: PCP Physician Assistant; Visit Provider Nurse Practitioner Obstetrics & Gynecology
DX: Z12.31 Encounter for screening mammogram for malignant neoplasm of breast (principal); Z79.899 Other long term (current) drug therapy
CPT/HCPCS: 36415; 77063; 77067; 83001; 83002; 84436; 84443; 84479

== ENCOUNTER 2024-03-23 13:16 | Emergency (ER) | payer BC, SELFPAY ==
[2024-03-23 13:35] VITALS: BP 114/85; PULSE 78; RESP 19; TEMP 37.1; O2SAT 97; BMI 29.7
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
[2024-03-23 14:10] VITALS: BP 114/85; PULSE 78; RESP 19; TEMP 37.1; O2SAT 97
== END 2024-03-23 14:12 | disposition home or self-care (01) ==
PROVIDERS: Emergency Provider Nurse Practitioner; PCP Physician Assistant
DX: R11.0 Nausea (principal); R51.9 Headache, unspecified
CPT/HCPCS: 99212; 99214; G0463

== ENCOUNTER 2024-04-30 10:47 | Outpatient (CLI) | payer BC, SELFPAY ==
[2024-04-30 12:08] LABS: Chloride 104 mmol/L (98-107); Sodium 140 mmol/L (136-145)
[2024-04-30 12:09] LABS: Potassium 5.3 mmoL/L (3.5-5.1)
[2024-04-30 12:11] LABS: Alanine Aminotransferase 14 U/L (12-78); Alkaline Phosphatase 136 U/L (38-126); Amylase 57 U/L (30-110); Anion Gap 10.3 mEq/L (5-15); Aspartate Amino Transferase 24 U/L (14-36); Bilirubin,Total 0.3 mg/dl (0.2-1.3); Blood Urea Nitrogen 23 mg/dl (7-17); Calcium 10.1 mg/dl (8.4-10.2); Carbon Dioxide 31 mmol/L (22.0-30.0); Estimated Glomerular Filt Rate 76 ml/min (>60); GFR (African American) 92 ML/MIN (>60); Glucose 107 mg/dl (74-100); Lipase 217 U/L (23-300)
[2024-04-30 12:12] LABS: Albumin Level 4.2 g/dl (3.5-5.0); Albumin/Globulin Ratio 1.8 (1.1-1.8); Chol/HDL Ratio 2.8 (1-3.5); Cholesterol 167 mg/dl (140-200); Globulin 2.3 g/dL (1.3-3.2); HDL Cholesterol 59 mg/dl (40-60); Total Protein,Serum 6.5 g/dl (6.3-8.2); Triglycerides 75 mg/dl (30-150); VLDL Cholesterol 15 mg/dL (0-40)
[2024-04-30 12:43] LABS: Thyroid Stimulating Hormone 0.86 uIU/mL (0.465-4.68)
[2024-05-01 18:10] LABS: H. pylori Breath Test Negative (Negative)
== END 2024-04-30 23:59 | disposition home or self-care (01) ==
LOC: LAB 10:48
PROVIDERS: PCP Physician Assistant; Visit Provider Physician Assistant
DX: Z13.220 Encounter for screening for lipoid disorders (principal); R11.0 Nausea
CPT/HCPCS: 36415; 80053; 80061; 82150; 83013; 83690; 84443

== ENCOUNTER 2024-11-04 10:28 | Outpatient (CLI) | payer BC, SELFPAY ==
--- NOTE | 2024-11-04 10:31 | XR_ITS ---
FINAL REPORT CLINICAL HISTORY: CHRONIC COUGH COMPARISON: none FINDINGS: No acute pulmonary density is evident. There is no evidence of effusion or other pleural disease. The mediastinum has a normal appearance. The cardiac silhouette is unremarkable. IMPRESSION: Unremarkable chest exam. Reviewed, Interpreted and Dictated by Marjorie Bangura MD Transcribed by Sri Washington Authenticated and [facility]
== END 2024-11-04 23:59 | disposition home or self-care (01) ==
LOC: RAD 10:29
PROVIDERS: PCP Physician Assistant; Visit Provider Physician Assistant
DX: R05.3 Chronic cough (principal)
CPT/HCPCS: 71046

== ENCOUNTER 2024-11-12 09:38 | Outpatient (CLI) | payer BC, SELFPAY ==
[2024-11-12] MEDS: ALBUTEROL 0.083% 2.5 MG/3 ML NEB IH (10:12)
--- NOTE | 2024-11-12 10:13 | PC.NURSE ---
PFT completed without incident, Albuterol 0.083% given, via HHN, per written protocol. Pt tolerated tx well.
== END 2024-11-12 23:59 | disposition home or self-care (01) ==
LOC: RT 09:39
PROVIDERS: PCP Physician Assistant; Visit Provider Physician Assistant
DX: R05.3 Chronic cough (principal)
CPT/HCPCS: 94060; 94726; 94729; J7613

== ENCOUNTER 2025-05-07 12:47 | Outpatient (CLI) | payer BC, SELFPAY ==
--- OUTSIDE RECORDS SUMMARY | 2024-11-04 06:00 | XMS_ITS ---
Author Organization [facility] Address [address] [place] [id number] Care Team Providers Care Proration Clerk Name Role Phone Giselle Blood Primary Care Provider [phone] Bernice Flores Unavailable [phone] Allergies No Known Allergies Results Component Value [...] Orally Once a day Active Vital Signs Weight 176.4 lbs 11/04/2024 Blood pressure systolic 140 mm Hg 11/04/20 24 Blood pressure diastolic 80 mm Hg 024 Heart Rate 60 /min 11/04/2024 Height 67 in 11/04/2024 BMI 27.63 kg/m2 11/04/2024 Encounters Encounter Location Date Provider Diagnosis [facility] [address] [place] [id number] 11/04/2024 Bernice Rejinelson Chronic cough R05.3 Assessments [...] Reason: Progress Notes * EDNA JAMADOB:[birth year] (49 yo F)Acc No.[id number]:11/04/2024 Progress Notes Patient: EDNA CRAIN Provider: CHUYITA Molina :1975 A ge:49 Y S ex:Female Date:11/04/2024 Address:[address] [place] [address] [place], [id number] Pcp:Giselle Blood Subjective: * Chief Complaints: * [...] Tobacco Addiction, 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 * Surgical History: [...] Examination: E NT/Respiratory: General Appearance: N AD. Ears: a uditory canals normal bilaterally, TM's WNL. Nose : n ormal, no lesions, nares patent. Sinuses : non tender bilaterally. Oral cavity : n o erythema or exudate seen on pharynx. Neck : n o cervical lymphadenopathy. Heart : R RR, normal S1 S2, no murmurs. Lungs: c lear to auscultation bilaterally. Assessment: * [...] AM > no auth required; CPT code 04763; faxed to [facility] Scheduling 11/10/2024 at 10:00amCrBernice wharton 11/26/2024 12:35:20 PM > see TE Notes: The inhaler helped but her dog chewed it up. Will send ventolin and get a CXR and PFT's. ? * Procedure Codes: 9 4760 [place], [address] CAPILLARY BLOOD DRAW, 57916 CBC WITH AUTO DIFF * Follow Up: v ia phone to report test results * Billing Information: * Visit Code: 06911 Office Visit, Est Pt., Level 3. * Procedure Codes: [address] [place]. [address] CAPILLARY BLOOD DRAW. 31417 CBC WITH AUTO DIFF. * Electronic signature of CHUYITA Mayberry on 05/07/2025 at 12:51 PM EDT Sign off status: Pending * Provider: CHUYITA Molina Date: 1 01/05/2024 Generated for Bryce vogel/Miya/Sharaitting on: 0 05/07/2025 12:51 PM EDT History and Physical Notes * HPI [...]
--- OUTSIDE RECORDS SUMMARY | 2025-03-26 11:15 | XMS_ITS ---
Author Organization [facility] Address [address] [facility] [address] [place] [phone] Care Team Providers Care Bag Checker Name Role Phone Giselle Blood Primary Care Provider Bernice Flores Unavailable [phone] Allergies No Known Allergies Results Component Value [...] MG 1 tab(s) orally once a day for 30 days Active lamoTRIgine 50 MG 1 tablet on the tongue and allow to dissolve Orally Once a day Active Omeprazole 40 MG Take 1 capsule by mouth once daily Orally once daily for 90 days Active Ventolin HFA 108 (90 [...] Location Date Provider Diagnosis [facility] [address] [place] [id number] 03/26/2025 Bernice Flores Generalized anxiety disorder F41.1 and BMI 26.0-26.9,adult [...] Assessment Notes Generalized anxiety disorder Discussed w [facility] Dr. Shah. He will write a rx for xanax. See TE. 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 * Surgical History: [...] Examination: P sychology: General Appearance: N AD. Grooming : a dequate. Eye contact : n ormal. Mood : p leasant. Heart: R SR. Lungs: c lear to auscultation. Neurologic Exam: I ntact, gait normal. ? Assessment: * Assessment: 1. G eneralized anxiety disorder - F41.1 (Primary) 2 . B [place] 26.0-26.9,adult - Z68.26 Plan: * Treatment: Notes: Discussed with Dr. Shah. He will write a rx for xanax. See TE.?? * Procedure Codes: 3 074F SYST BP LT 130 MM HG, 3078F DIAST BP < 80 MM HG * Follow Up: w [facility] psychiatry * Billing Information: * Visit Code: 36885 Office Visit, Est Pt., Level 3. * Procedure Codes: 3074F SYST BP LT 130 MM HG. 3078F DIAST BP < 80 MM HG. * Electronic signature of CHUYITA Mayberry on 05/07/2025 at 12:52 PM EDT Sign off status: Pending * Provider: CHUYITA Molina Date: 0 03/26/2025 Generated for Markeli ng/Faleeanng/eTransmitting on: 0 05/07/2025 12:52 PM EDT History and Physical Notes * [...]
--- OUTSIDE RECORDS SUMMARY | 2025-04-30 09:30 | XMS_ITS ---
Author Organization [facility] Address [address] [facility] [address] [place] [phone] Care Team Providers Care Manager Chemistry Name Role Phone Giselle Blood Primary Care Provider [phone] Bernice Flores Unavailable [phone] Allergies No Known Allergies Results Component Value [...] - 38 plat 268 100 - 400 REASON FOR VISIT sore throat, cough, circulation Medications Medication SIG (Take, Route, Frequency, Duration) Notes Start Date End Date Status Omeprazole 40 MG Take 1 capsule by mouth once daily for 90 days for 90 Active Lisinopril 10 MG 1 tab(s) orally once a day for 30 days Active Albuterol Sulfate HFA 108 [...] a day, prn 04/30/2025 Active Vital Signs Weight 176.4 lbs 04/30/2025 Blood pressure systolic 120 mm Hg 04/30/20 25 Blood pressure diastolic 68 mm Hg 025 Heart Rate 72 /min 04/30/2025 Height 67 in 04/30/2025 BMI 27.63 kg/m2 04/30/2025 Encounters Encounter Location Date Provider Diagnosis [facility] [address] [facility] [place] [address], [place] [id number] 04/30/2025 Bernice Flores Acute URI J06.9 ; [...] Orally Three times a day, prn 04/30/2025 Pending Test Test Name Order Date Ankle-brachial index 04/30/2025 Next Appt Details Follow Up: via phone to repo rt test results, Reason: Progress Notes * ROSALIO JAMA:[birth year] (49 yo F)Acc No.[id number]:04/30/2025 Progress Notes Patient: EDNA CRAIN Provider: CHUYITA Molina :1975 A ge:49 Y S ex:Female Date:04/30/2025 Address:[address] [place] [address] [place], [id number] Pcp:Giselle Blood Subjective: * Chief Complaints: * [...] Tobacco Addiction, 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 * Surgical History: [...] G eneral Examination: General Appearance: N AD. HEENT: s clera and conjunctiva clear, PERRLA, TM's normal, translucent, nose congested. Oral cavity: n o lesions, mucosa moist and WNL, no erythema. Neck: s upple, no lymphadenopathy. Chest: n ormal shape and expansion. Heart: R SR. Lungs: e xpiratory wheezes, no rales. Extremities: n o leg edema, no ttp. Assessment: * Assessment: 1. A mary URI - J06.9 (Primary) 2 . B tamiko - J40 3 .?Pain in right lower leg - M79.661 4 . P ain in left lower leg - M79.662 5 . B [place] 27.0-27.9,adult - Z68.27 Plan: * Treatment: Value [...] Refills 1.??3.?Pain in right lower leg?Imaging: Ankle-brachial index* Goldie Chin 04/30/2025 02:1 1:13 PM EDT >auth#[id number]; valid 04/30/2025- 05/29/2025; CPT code 74103; faxed to [facility] Scheduling 4.?Pain in left lower leg?Imaging: Ankle-brachial index* Goldie Chin 04/30/2025 02:1 1:13 PM EDT >auth#[id number]; valid 04/30/2025- 05/29/2025; CPT code 47335; faxed to [facility] Scheduling * Procedure Codes: 3 6416 CAPILLARY BLOOD DRAW, 39493 CBC WITH AUTO DIFF, G8420 BMI<30 AND >=22 CALC & DOCU, G8783 BP SCR PRFRM RCMDD DEFIND SCR INTVL, G8752 MOST RECENT SYSTOLIC BP < 140MM HG, G8754 MOST RECENT DIASTOLIC BP < 90MM HG * Follow Up: v ia phone to report test results * Billing Information: * Visit Code: 31875 Office Visit, Est Pt., Level 3. * Procedure Codes: 21686 CAPILLARY BLOOD DRAW. 48448 CBC WITH AUTO DIFF. G8420 BMI<30 AND >=22 CALC & DOCU. G8783 BP SCR PRFRM RCMDD DEFIND SCR INTVL. G8752 MOST RECENT SYSTOLIC BP < 140MM HG. G8754 MOST RECENT DIASTOLIC BP < 90MM HG. * Electronic signature of CHUYITA Mayberry on 05/07/2025 at 12:51 PM EDT Sign off status: Pending * Provider: CHUYITA Molina Date: 04/30/2025 Generated for Bryce vogel/Miya/eTransmitting on: 05/07/2025 12:51 PM EDT History and Physical [...]
--- OUTSIDE RECORDS SUMMARY | 2025-05-07 12:51 | XMS_ITS | Patient Health Record ---
Author Organization [facility] Address [address] [place] [id number] Care Team Providers Care Sensitizer Name Role Phone Giselle Blood Primary Care Provider Jaswinder Cortez Unavailable [phone] Trevor Shah Unavailable [phone] Karen Cisneros Unavailable [phone] Bernice Flores Unavailable [phone] Allergies No Known Allergies Results Component Value [...] - 38 plat 259 100 - 400 CBC Fingerstick (in house) Reviewed date:05/02/2025 11:22:55 [...] - 38 plat 268 100 - 400 CBC Venipuncture (in house) Reviewed date:05/11/2024 11:47:47 AM Interpretation: Performing Lab: Notes/Report: wbc 10.1 3.5 - 10 lymph 17.4% 15 - 50 mid 5.2% 2 - 15 gran 77.4% 35 - 80 rbc 5.87 3.5 - 5.5 hgb 14.6 11.5 - 16.5 hct 46.5 35 - 55 mcv 79.3 75 - 100 mch 24.9 25 - 35 mchc 31.4 31 - 38 platlet 446 100 - 400 P-Comprehensive Metabolic Pa tyler ([facility]) Reviewed date:06/01/2024 03:45:41 PM Interpretation:gluc 113, bun 23, alk phos 135, a/g 2.7- Performing Lab: Notes/Report: Test performed by [employer] [employer] [address] [place] [address] , [address], [place] [address] Remi Manley MD, Vp Patient CLIA: [id number] Sodium 139 135-145 mmol/L Potassium 4.2 3.5-5.3 mmol/L Chloride 97 97-108 mmol/L CO2 26 22-32 mmol/L Glucose 113 65-99 mg/dL BUN 23 6-20 mg/dL Creatinine 0.92 0.50-1.00 mg/dL Calcium 10.4 8.6-10.4 mg/dL eGFR by Creatinine 75 >59 mL/min/1.73m2 Protein 7.0 6.0-8.3 g/dL Albumin 5.1 3.5-5.3 g/dL Alkaline Phosphatase 135 35-121 IU/L ALT (SGPT) 10 <5-47 IU/L AST (SGOT) 20 <5-40 IU/L Bilirubin, Total 0.3 <0.2-1.2 mg/dL A/G Ratio 2.7 1.1-2.5 mg/dL Glycohemoglobin A1c (in hous e) Reviewed date:06/03/2024 05:04:58 PM Interpretation:5.5, normal Performing Lab: Notes/Report: 5.5, normal glycohemoglobin 5.5% 5 - 6.5 % CBC Fingerstick (in house) Reviewed date:11/04/2024 12:42:07 [...] date:11/26/2024 12:35:24 PM Interpretation: Performing Lab: Notes/Report: CHARLES Reviewed date:04/01/2025 03:54:05 PM Interpretation: Performing Lab: Notes/Report: Reason For Referral Reason persistant nausea, h x gastric bypass Diagnosis 1 Nausea (R11.0) [facility] Referring Provider First Name Jaswinder Jones Referring Provider Last Name Diego Referring Provider Speciality Family [facility] ctice Referred Provider Maninder Donald Referred Provider Specialty Gastroentero logy General Notes Goldie Chin 05/11/20 24 1:59:47 PM > faxed referral to Dr. Donald's office Referral Priority Routine Medications Medication SIG (Take, Route, Frequency, Duration) Notes Start Date End Date Status lamoTRIgine 50 MG 1 tablet on the [...] Twic e a day, prn 03/26/2025 Active Benzonatate 200 MG 1 capsule as needed Orally Three times a day, prn 04/30/2025 Active QUEtiapine Fumarate 50 MG 1 tablet at be dtime Orally Once a day Active Immunizations Vaccine Route Administration Date Status Comme nts Fluzone Quad (6months&older) IM Intramuscular 01/06/2021 Administered Fluzone Quad (6months&older) IM Intramuscular 07/27/2024 Administered COVID 19 Moderna Unknown 03/15/2021 Administered Problems Problem Type SNOMED Code ICD Code Onset Dates Problem Status W/U Status Risk Notes Problem 25146560 Essential (prima ry) hypertension (I10) Active confirmed Problem 74460090 Essential hypertension (I10) Active confirmed Problem 21162271 Anxiety (F41.9) Active confirmed Problem 92968359 Generalized anxi ety disorder (F41.1) Active confirmed Problem 440695906 Nausea (R11.0) Active confirmed Problem 767783364 Status post laparoscopic cholecystectomy (Z90.49) Active confirmed Problem 986734420 Panic attack (F41.0) Active confirmed Problem 3752715 Chronic gastriti s without bleeding, unspecified gastritis type (K29.50) Active confirmed Problem 546066422 Gastric ulcer, unspecified chronicity, unspecified whether gastric ulcer hemorrhage or perforation present (K25.9) Active confirmed Problem 82116003 Calculus of gallbladder with cholecystitis without biliary obstruction, unspecified cholecystitis acuity (K80.10) Active confirmed Problem 681607017 Gastroesophageal reflux disease, unspecified whether esophagitis present (K21.9) Active confirmed Vital Signs Heart Rate 72 /min 04/30/2025 Blood pressure diastolic 68 mm Hg 04/30/2025 Height 67 in 04/30/2025 Blood pressure systolic 120 mm Hg 04/30/2025 Weight 176.4 lbs 04/30/2025 BMI 27.63 kg/m2 04/30/2025 Encounters Encounter Location Date Provider Diagnosis [facility] [address] [facility] 36 [facility] [address] [place], [place] [id number] 05/11/2024 Jaswinder Cortez Nausea R11.0 and Chr onic gastritis without bleeding, unspecified gastritis type K29.50 [facility] [address] [facility] 36 [facility] [address] [place], [place] [id number] 06/03/2024 Jaswinder Cortez Elevated glucose R73 .09 [facility] [address] [facility] [address] [place], [place] [id number] 07/09/2024 Bernice Flores Insect bite (nonvenomous) of left upper arm, initial encounter S40.862A and Bitten or stung by nonvenomous insect and other nonvenomous arthropods, initial encounter W57.XXXA [facility] [address] [place], [place] [id number] 07/27/2024 Karen Cisneros Generalized anxiety disorder F41.1 ; Essential hypertension I10 ; Depression, unspecified depression type F32.A ; Gastroesophageal reflux disease, unspecified whether esophagitis present K21.9 ; Encounter for immunization Z23 ; Nausea R11.0 ; Tobacco use disorder Z72.0 and Well adult exam Z00.[address] [facility] [address] [place], [place] [id number] 10/14/2024 Bernice Crowdy Acute URI J06.[address] J[address] [facility] [address] [place], [place] [id number] 11/04/2024 Bernice Crowdy Chronic cough R05.[address] [facility] [address] [place], [place] [id number] 03/26/2025 Bernice Crowdy Generalized anxiety disorder F41.1 and BMI 26.0-26.9,adult Z68.[address] [facility] [address] [place], [place] [id number] 04/30/2025 Bernice Crowdy Acute URI J06.9 ; Bronchitis J40 ; Pain in right lower leg M79.661 ; Pain in left lower leg M79.662 and BMI 27.0-27.9,adult Z68.[address] [facility] [address] [place], [place] [id number] 05/11/2024 R Emerson Caitie [facility] [address] [facility] [address] [place], [place] [id number] 05/14/2024 R Emerson Blood [facility] [address] [place], [place] [id number] 06/01/[address] [facility] [address] [place], [place] [id number] 06/15/2024 Jaswinder Cortez Essential hypertensi on I10 [facility] [address] [place], [place] [id number] 11/05/2024 Bernice Flores [facility] [address] [place], [place] [id number] 11/26/2024 Bernice Flores [facility] [address] [place], [place] [id number] 01/11/2025 R Emerson Blood Gastroesophageal ref lux disease, unspecified whether esophagitis present K21.9 [facility] [address] [place], [place] [id number] 01/29/2025 Bernice Flores [facility] [address] [place], [place] [id number] 02/24/2025 R Emerson Caitie Essential hypertensi on I10 [facility] [address] [place], [place] [id number] 03/26/2025 Trevorquan Shah [facility] [address] [place], [place] [id number] 04/05/2025 R Emerson Caitie Essential hypertensi on I10 Assessments Encounter Date Diagnosis (ICD Code) Assessment Notes Treatment Notes Treatment Clinical Notes Section Notes 05/11/2024 Nausea (ICD-10 - R11.0) 05/11/2024 Chronic gastritis without bleeding, unspecified gastritis type (ICD-10 - K29.50) Continue Phenergan 25mg four times a day, scheduled 06/03/2024 Elevated glucose (ICD-10 - R73.09) 06/15/2024 Essential hypertension (ICD-10 - I10) 07/09/2024 Insect bite (nonvenomous) of left upper arm, initial encounter (ICD-10 - S40.862A) 07/09/2024 Bitten or stung by nonvenomous insect and other nonvenomous arthropods, initial encounter (ICD-10 - W57.XXXA) 07/27/2024 Essential hypertension (ICD-10 - I10) 10/14/2024 Bronchitis (ICD-10 - J40) 10/14/2024 Acute URI (ICD-10 - J06.9) Gave a sample of airsupra. 11/04/2024 Chronic cough (ICD-10 - R05.3) The inhaler helped but her dog chewed it up. Will send ventolin and get a CXR and PFT's. 01/11/2025 Gastroesophageal reflux disease, unspecified whether esophagitis present (ICD-10 - K21.9) 02/24/2025 Essential hypertension (ICD-10 - I10) 03/26/2025 BMI 26.0-26.9,adult (ICD-10 - Z68.26) 03/26/2025 Generalized anxiety disorder (ICD-10 - F41.1) Discussed with Dr. Shah. He will write a rx for xanax. See TE. 04/05/2025 Essential hypertension (ICD-10 - I10) 07/27/2024 Generalized anxiety disorder (ICD-10 - F41.1) 04/30/2025 Bronchitis (ICD-10 - J40) 04/30/2025 Acute URI (ICD-10 - J06.9) 07/27/2024 Depression, unspecified depression type (ICD-10 - F32.A) 04/30/2025 Pain in right lower leg (ICD-10 - M79.661) 04/30/2025 Pain in left lower leg (ICD-10 - M79.662) 07/27/2024 Gastroesophageal reflux disease, unspecified whether esophagitis present (ICD-10 - K21.9) 07/27/2024 Encounter for immunization (ICD-10 - Z23) 04/30/2025 BMI 27.0-27.9,adult (ICD-10 - Z68.27) 07/27/2024 Nausea (ICD-10 - R11.0) 07/27/2024 Tobacco use disorder (ICD-10 - Z72.0) 07/27/2024 Well adult exam (ICD-10 - Z00.00) 07/27/2024 Other Mamm and cologuard were ordered by THEATRE DIRECTOR Plan Of Treatment Pending Test Test Name Order Date Ankle-brachial index 04/30/2025 CT Scan : Abdomen & Pelvis w & w/o contr ast 05/11/2024 Insurance Providers Payer Name Payer Address Payer Phone Subscriber Number Group Number Insured Name Patient Relationship to Insured Coverage Start Date Coverage End Date [facility] [address] [place] [address] [id number] EDNA OCONNOR Self - patient is the insured Medications Administered Medication Instructions Date of Administration Dosage Notes Dexamethasone 01/17/2022 1 mL Dexamethasone 03/15/2022 1 mL Dexamethasone 06/15/2022 1 mL Medical (General) History Medical History History ICD Code Hypertension Anxiety Ulcers Tobacco Addiction Follows with Dr. Gaines for THEATRE DIRECTOR care Recovering Drug Addict Surgical History Surgery Date(Month/Year) Gastric Bypass 2009 Rt Hip Replacement -Dr Lowe 10/25/2022 Cholecysectomy 09/2022
--- NOTE | 2025-05-07 12:54 | US_ITS ---
FINAL REPORT CLINICAL HISTORY: current smoker, HTN, bilateral rest pain, bilateral claudication FINDINGS: Ankle-brachial indices was obtained. The right TRI is 1.3. The left TRI is 1.2. IMPRESSION: ABIs are within normal limits bilaterally. Reviewed, Interpreted and Dictated by Kalyn Wright MD Transcribed by Shaila Woodard Authenticated and [facility]
== END 2025-05-07 23:59 | disposition home or self-care (01) ==
LOC: RT 12:50
PROVIDERS: PCP Physician Assistant; Visit Provider Physician Assistant
DX: M79.661 Pain in right lower leg (principal); M79.662 Pain in left lower leg; F17.200 Nicotine dependence, unspecified, uncomplicated; I10 Essential (primary) hypertension; I73.9 Peripheral vascular disease, unspecified
CPT/HCPCS: 93923

== ENCOUNTER 2025-06-17 09:52 | Outpatient (CLI) | payer BC, SELFPAY ==
--- OUTSIDE RECORDS SUMMARY | 2025-03-26 11:15 | XMS_ITS ---
[facility] [address] [facility] [address] [place] [id number] Care Team Providers Care Service Coordinator Name Role Phone Giselle Blood Primary Care Provider Bernice Flores Unavailable [phone] Allergies No Known Allergies Results Component Value Reference Range Notes CHARLES Reviewed date:04/01/2025 03:54:05 PM Interpretation: Performing Lab: Notes/Report: REASON FOR VISIT panic attack Medications Medication SIG (Take, Route, Frequency, Duration) Notes Start Date End Date Status QUEtiapine Fumarate 50 MG 1 tablet at be dtime Orally Once a day Active Trintellix 20 MG 1 tablet Orally Once a day Active Lisinopril 10 MG 1 tab(s) orally once a day; Duration: 30 days Active lamoTRIgine 50 MG 1 tablet on the tongue and allow to dissolve Orally Once a day Active Omeprazole 40 MG Take 1 capsule by mouth once daily Orally once daily; Duration: 90 days Active Ventolin HFA 108 (90 Base) MCG/ACT 1 puff as needed Inhalation every 4 hrs, prn 11/04/2024 Active hydroCHLOROthiazide 25 MG 1 tab(s) orall y once a day Active Vital Signs Weight 172 lbs 03/26/2025 Blood pressure systolic 128 mm Hg 03/26/20 25 Blood pressure diastolic 70 mm Hg 025 Heart Rate 69 /min 03/26/2025 Height 67 in 03/26/2025 BMI 26.94 kg/m2 03/26/2025 Encounters Encounter Location Date Provider Diagnosis [facility] [address] [facility] [address] [place] [id number] 03/26/2025 Bernice Mendozanelson Generalized anxiety disorder F41.1 and BMI 26.0-26.9,adult Z68.26 Assessments Encounter Date Diagnosis (ICD Code) Assessment Notes Treatment Notes Treatment Clinical Notes Section Notes 03/26/2025 Generalized anxiety disorder (ICD-10 - F41.1) Discussed with Dr. Shah. He will write a rx for xanax. See TE. 03/26/2025 BMI 26.0-26.9,adult (ICD-10 - Z68.26) Plan Of Treatment Medication Medication Name Sig Start Date Stop Date Notes QUEtiapine Fumarate 50 MG 1 tablet at be dtime Orally Once a day Trintellix 20 MG 1 tablet Orally Once a day lamoTRIgine 50 MG 1 tablet on the tong ue and allow to dissolve Orally Once a day Treatment Notes Assessment Notes Generalized anxiety disorder Discussed w jos Shah. He will write a rx for xanax. See TE. Next Appt Details Follow Up: with psychiatry, Reason: Progress Notes * EDNA JAMADOB:[birth year] (49 yo F)Acc No.[id number]:03/26/2025 Progress Notes Patient: aJmila DONNYEDNA Provider: CHUYITA Molina :1975 A ge:49 Y S ex:Female Date:03/26/2025 Address:[address] [place] [address] Kimberley [place], [id number] Pcp:Giselle Blood Subjective: * Chief Complaints: * 1 . Panic attack. * HPI: H PI: 49 year old female presents with c/o Patient is here today for?Pt sts she is here today with c/o having panic attacks. Cleo Gottlieb used to write her xanax but Cleo has left and no one can write it for her in that office without an appt. . * ROS: D ERMATOLOGY: no R mirela. n o H petra. G ASTROENTEROLOGY: no N ausea. n o V omiting. n o D iarrhea.? U ROLOGY: no D ifficulty urinating. n o B lood in urine. 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 * Surgical History: [...] bedtime Orally Once a day , Taking hydroCHLOROthiazide 25 MG Tablet 1 tab(s) orally once a day , Taking Ventolin HFA 108 (90 Base) MCG/ACT Aerosol Solution 1 puff as needed Inhalation every 4 hrs, prn , Taking Omeprazole 40 MG Capsule Delayed Release Take 1 capsule by mouth once daily Orally once daily , Taking Lisinopril 10 MG Tablet 1 tab(s) orally once a day , Medication List reviewed and reconciled with the patient * Allergies: N .K.D.A. Objective: * Vitals: W t: 172, Temp: 98.2, BP: 128/70, HR: 69, Nurse: jennifer, Ht: 67, BMI:26.94. * Examination: P sychology: General Appearance: N AD. G rooming : a dequate.?Eye contact : n ormal. M ood : p leasant. H eart: R SR. L ungs: c lear to auscultation. N eurologic Exam: I ntact, gait normal. Assessment: * Assessment: 1. G eneralized anxiety disorder - F41.1 (Primary) 2 . B VT 26.0-26.9,adult - Z68.26 Plan: * Treatment: Notes: Discussed with Dr. Shah. He will write a rx for xanax. See TE.?? * Procedure Codes: 3 074F SYST BP LT 130 MM HG, 3078F DIAST BP < 80 MM HG * Follow Up: w [facility] * Images: Billing Information: * Visit Code: 73102 Office Visit, Est Pt., Level 3. * Procedure Codes: 3074F SYST BP LT 130 MM HG. 3078F DIAST BP < 80 MM HG. * Electronic signature of CHUYITA Mayberry on 06/17/2025 at 09:56 AM EDT Sign off status: Pending * Provider: CHUYITA Molina Date: 0 03/26/2025 Generated for Bryce vogel/Miya/Oral on: 0 06/17/2025 09:56 AM EDT History and Physical Notes * HPI (History of Present Illness) Category Sub-Category Detail Notes Category Not es HPI Patient is here today for Pt sts she is here today with c/o having panic attacks. Cleo Bull used to write her xanax but Cleo has left and no one can write it for her in that office without an appt. Examination Category Sub-Category Detail Notes Category Not es Psychology Heart: RSR Lungs: clear to auscultatio n General Appearance: NAD Neurologic Exam: Intact, gait normal Grooming : adequate Eye contact : normal Mood : pleasant
--- OUTSIDE RECORDS SUMMARY | 2025-04-30 09:30 | XMS_ITS ---
Author Organization [facility] Address [address] [facility] [address] [place] [id number] Care Team Providers Care It Business Systems Analyst Name Role Phone Giselle Blood Primary Care Provider Bernice Flores Unavailable [phone] Allergies No Known Allergies Results Component Value [...] 04/30/2025 Encounters Encounter Location Date Provider Diagnosis [facility] [address] [facility] [address] [id number] 04/30/2025 Bernice Flores Acute URI J06.9 ; [...] * ROSALIO JAMA:[birth year] (49 yo F)Acc No.[id number]:04/30/2025 Progress Notes Patient: EDNA CRAIN Provider: CHUYITA Molina :1975 A ge:49 Y S ex:Female Date:04/30/2025 Address:[address] [place] [address] [place], [id number] Pcp:Giselle Blood Subjective: * Chief Complaints: * [...] Tobacco Addiction, 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 * Surgical [...] lower leg - M79.662 5 . B [place] 27.0-27.9,adult - Z68.27 Plan: * Treatment: Value [...] Goldie Chin 04/30/2025 02:1 1:13 PM EDT >auth#[id number]; valid 04/30/2025- 05/29/2025; CPT code 64488; faxed to [facility] ManojRainewilly Palmer 05/12/2025 02:02:55 PM EDT > Left voicemail informing of normal lab results 4.?Pain in left lower leg?Imaging: Ankle-brachial index (Performed Date - 05/07/2025)?Normal* Goldie Chin 04/30/2025 02:1 1:13 PM EDT >auth#[id number]; valid 04/30/2025- 05/29/2025; CPT code 32556; faxed to [facility] ManojRainewilly Palmer 05/12/2025 02:02:55 PM EDT > Left voicemail informing of normal lab results * Procedure Codes: 3 6416 CAPILLARY BLOOD DRAW, 97357 CBC WITH AUTO DIFF, G8420 BMI<30 AND >=22 CALC & DOCU, G8783 BP SCR PRFRM RCMDD DEFIND SCR INTVL, G8752 MOST RECENT SYSTOLIC BP < 140MM HG, G8754 MOST RECENT DIASTOLIC BP < 90MM HG * Follow Up: v ia phone to report test results * Images: Billing Information: * Visit Code: 37721 Office Visit, Est Pt., Level 3. * Procedure Codes: 18085 CAPILLARY BLOOD DRAW. 81160 CBC WITH AUTO DIFF. G8420 BMI<30 AND [...] 04/30/2025 Generated for Markeli ng/Faleeanng/eTransmitting on: 0 06/17/2025 09:56 AM EDT History [...]
--- OUTSIDE RECORDS SUMMARY | 2025-05-25 06:00 | XMS_ITS ---
Author Organization [facility] Address [address] [facility] [address] [place] [id number] Care Team Providers Care Ward Aide Name Role Phone Giselle Blood Primary Care Provider Allergies No Known Allergies Results Component Value Reference Range Notes P-Comprehensive Metabolic Pa tyler (CMP) Reviewed date:05/27/2025 08:18:13 AM Interpretation:bun 27, alk phos 133 Performing Lab: Notes/Report: Test performed by [facility] , [address], [place] [address] Rmei Manley MD, Engineering Faculty Member CLIA: [id number] Sodium 142 135-145 mmol/L Potassium 4.4 3.5-5.3 [...] Interpretation:Normal Performing Lab: Notes/Report: Test performed by [employer] [employer] [address] [facility] , [address], [place] [address] Remi Manley MD, Engineering Faculty Member MONICA: [id number] Cholesterol 156 <200 mg/dL Triglycerides 72 <150 [...] once a day Active Vital Signs Weight 178.6 lbs 05/25/2025 Blood pressure systolic 122 mm Hg 05/25/20 25 Blood pressure diastolic 74 mm Hg 025 Heart Rate 56 /min 05/25/2025 Height 67 in 05/25/2025 BMI 27.97 kg/m2 05/25/2025 Encounters Encounter Location Date Provider Diagnosis [facility] [address] [facility] [address] [place], [place] [phone] 05/25/2025 Giselle Blood Essential hypertensi on I10 [...] * ROSALIO JAMA:[birth year] (49 yo F)Acc No.[id number]:05/25/2025 Physical Patient: EDNA CRAIN Provider: Giselle Blood M.D. :1975 A ge:49 Y S ex:Female Date:05/25/2025 Address:[address] [place] [address] [place], [id number] Subjective: * Chief Complaints: * 1 . Yearly cpx with labs. 2. Needs labs, mammogram, colon cancer screening, Tdap, & shingles vaccine. * HPI: H PI: 49 year old female presents with c/o Patient is here today for?complete physical. Pt states she is doing and denies any new concerns. Pt is fasting. P sychology: She continues to follow with [facility] Behavioral health and remained stable on her current medical regimen. * ROS: D ERMATOLOGY: no R mirela. n o H petra. G ASTROENTEROLOGY: no N ausea. n o V omiting. n o D iarrhea.? U ROLOGY: no D ifficulty urinating. n o B lood in urine. * Medical History: H ypertension, Anxiety, Ulcers, Tobacco Addiction, Follows with Dr. Gaines for CADDIE SUPERVISOR care, Recovering Drug Addict. * Surgical History: [...] lipid disorders - Z13.220 4 . B AL 27.0-27.9,adult - Z68.27 Plan: * Treatment: Value [...] * Images: Billing Information: * Visit Code: 84883 Office Visit, Est Pt., Level 4. * Procedure Codes: G8420 BMI<30 AND >=22 CALC & DOCU. G8950 PREHTN/HTN BP DOC INDCD F/U DOC. G8752 MOST RECENT SYSTOLIC BP < 140MM HG. G8754 MOST RECENT DIASTOLIC BP < 90MM HG. * Electronic signature of R Ian Blood MD on 06/17/2025 at 09:56 AM EDT Sign off status: Pending * Provider: Giselle Blood M.D. Date: 05/25/2025 Generated for Bryce vogel/Miya/eTkaitlinsmitting on: 06/17/2025 09:56 AM EDT History and Physical Notes * HPI (History of Present Illness) Category Sub-Category Detail Notes Category Not es Psychology She continues t o follow with [facility] Behavioral health and remained stable on her [...]
--- OUTSIDE RECORDS SUMMARY | 2025-06-17 09:56 | XMS_ITS | Patient Health Record ---
Author Organization [facility] Address [address] [place] [id number] Care Team Providers Care Pet Food Deboner Name Role Phone Giselle Blood Primary Care Provider Trevor Shah Unavailable [phone] Karen Cisneros Unavailable [phone] Bernice Flores Unavailable [phone] Allergies No Known Allergies Results Component Value Reference Range Notes P-Comprehensive Metabolic Pa tyler (CMP) Reviewed date:05/27/2025 08:18:13 AM Interpretation:bun 27, alk phos 133 Performing Lab: Notes/Report: Test performed by [facility] [address] [place] [address] , [address], [place] [address] Remi Manley MD, Prospecting Observer CLIA: [id number] Sodium 142 135-145 mmol/L Potassium 4.4 3.5-5.3 [...] Interpretation:Normal Performing Lab: Notes/Report: Test performed by [facility] [address] [place] [address] , [address], [place] [address] Remi Manley MD, Prospecting Observer CLIA: [id number] Cholesterol 156 <200 mg/dL Triglycerides 72 <150 [...] Results: 88 Units: mg/dL % Change: - Ankle-brachial index Reviewed date:05/12/2025 02:03:04 PM Interpretation:Normal Performing Lab: Notes/Report: Normal CBC Fingerstick (in house) Reviewed date:10/14/2024 04:34:14 [...] - 400 CBC Fingerstick (in house) Reviewed date:11/04/2024 12:42:07 [...] date:04/01/2025 03:54:05 PM Interpretation: Performing Lab: Notes/Report: CBC Fingerstick (in house) Reviewed date:05/02/2025 11:22:55 [...] - 38 plat 268 100 - 400 Reason For Referral No Information Medications Medication SIG (Take, Route, Frequency, Duration) Notes Start Date End Date Status Ventolin HFA 108 (90 Base) MCG/ACT 1 puff as needed Inhalation every 4 hrs, prn 11/04/2024 Active Trintellix 20 MG 1 tablet Orally Once a day Active Albuterol Sulfate HFA 108 (9 0 Base) MCG/ACT 1 puff as needed Inhalation every 4 hrs, prn 04/30/2025 Active Lisinopril 10 MG 1 tab(s) orally once a day Active QUEtiapine Fumarate 50 MG 1 tablet at be dtime Orally Once a day Active lamoTRIgine 50 MG 1 tablet on the tongue and allow to dissolve Orally Once a day Active Omeprazole 40 MG Take 1 capsule by mouth once daily for 90 days; Duration: 90 days Active hydroCHLOROthiazide 25 MG 1 tab(s) orall y once a day Active Immunizations Vaccine Route Administration Date Status Comme nts Fluzone Quad (6months&older) IM Intramuscular 01/06/2021 Administered Fluzone Quad (6months&older) IM Intramuscular 07/27/2024 Administered COVID 19 Moderna Unknown 03/15/2021 Administered Problems Problem Type SNOMED Code ICD Code Onset Dates Problem Status W/U Status Risk Notes Problem Essential hypertension (15536930) Essential (primary) hypertension (I10) Active confirmed Problem Essential hypertension (16903415) Essential hypertension (I10) Active confirmed Problem Anxiety (09506923) Anxiety (F41.9) Active confi rmed Problem Generalized anxiety disorder (16580702) Generalized anxiety disorder (F41.1) Active confirmed Problem Nausea (267300850) Nausea (R11.0) Active confir med Problem History of cholecystectomy (793591705) Status post laparoscopic cholecystectomy (Z90.49) Active confirmed Problem Panic attack (016952356) Panic attack (F41.0) Active confirmed Problem Atrophic gastritis (34722971) Chronic gastritis without bleeding, unspecified gastritis type (K29.50) Active confirmed Problem Gastric ulcer without hemorrhage, without perforation AND without obstruction (24371918) Gastric ulcer, unspecified chronicity, unspecified whether gastric ulcer hemorrhage or perforation present (K25.9) Active confirmed Problem Cholelithiasis AND cholecystitis without obstruction (disorder) (17082923) Calculus of gallbladder with cholecystitis without biliary obstruction, unspecified cholecystitis acuity (K80.10) Active confirmed Problem Gastroesophageal reflux disease (047874761) Gastroesophageal reflux disease, unspecified whether esophagitis present (K21.9) Active confirmed Vital Signs Heart Rate 56 /min 05/25/2025 Blood pressure diastolic 74 mm Hg 05/25/2025 Height 67 in 05/25/2025 Blood pressure systolic 122 mm Hg 05/25/2025 Weight 178.6 lbs 05/25/2025 BMI 27.97 kg/m2 05/25/2025 Encounters Encounter Location Date Provider Diagnosis [facility] [address] [facility] [address] [place] [id number] 07/09/2024 Bernice Mark Insect bite (nonvenomous) of left upper arm, initial encounter S40.862A and Bitten or stung by nonvenomous insect and other nonvenomous arthropods, initial encounter W57.XXXA [facility] [address] [facility] [address] [place] [id number] 07/27/2024 Karen Cisneros Generalized anxiety disorder F41.1 ; Essential hypertension I10 ; Depression, unspecified depression type F32.A ; Gastroesophageal reflux disease, unspecified whether esophagitis present K21.9 ; Encounter for immunization Z23 ; Nausea R11.0 ; Tobacco use disorder Z72.0 and Well adult exam Z00.00 [facility] [address] [facility] [address] [place], [place] [id number] 10/14/2024 Bernice Crowdy Acute URI J06.9 and Bronchitis J40 [facility] [address] [facility] [address] [place], [place] [id number] 11/04/2024 Bernice Crowdy Chronic cough R05.3 [facility] [address] [facility] [address] [place], [place] [id number] 03/26/2025 Bernice Mark Generalized anxiety disorder F41.1 and BMI 26.0-26.9,adult Z68.26 [facility] [address] [facility] [address] [place], [place] [id number] 04/30/2025 Bernice Crowdy Acute URI J06.9 ; Bronchitis J40 ; Pain in right lower leg M79.661 ; Pain in left lower leg M79.662 and BMI 27.0-27.9,adult Z68.27 [facility] [address] [facility] [address] [place], [place] [id number] 05/25/2025 R Emerson Caitie Essential hypertensi on I10 ; Generalized anxiety disorder F41.1 ; Screening for lipid disorders Z13.220 and BMI 27.0-27.9,adult Z68.27 [facility] [address] [place], [place] [id number] 05/11/2025 R Emerson Caitie [facility] [address] [place], [place] [id number] 05/27/2025 R Emerson Caitie [facility] [address] [place], [place] [id number] 11/05/2024 Bernicebenny Flores [facility] [address] [place], [place] [id number] 11/26/2024 Bernice Flores [facility] [address] [place], [place] [id number] 01/11/2025 R Emerson Caitie Gastroesophageal ref lux disease, unspecified whether esophagitis present K21.9 [facility] [address] [place], [place] [id number] 01/29/2025 Bernice Mendozady [facility] [address] [place], [place] [id number] 02/24/2025 R Emerson Caitie Essential hypertensi on I10 [facility] [address] [place], [place] [id number] 03/26/2025 Trevor [place] [facility] [address] [place], [place] [id number] 04/05/2025 R Emerson Caitie Essential hypertensi on I10 [facility] [address] [place], [place] [id number] 05/11/2025 R Emerson Caitie Essential hypertensi on I10 Assessments Encounter Date Diagnosis (ICD Code) Assessment Notes Treatment Notes Treatment Clinical Notes Section Notes 07/09/2024 Insect bite (nonvenomous) of left upper [...] J40) 04/30/2025 Acute URI (ICD-10 - J06.9) 05/11/2025 Essential hypertension (ICD-10 - I10) 05/25/2025 Essential hypertension (ICD-10 - I10) 05/25/2025 Generalized anxiety disorder (ICD-10 - F41.1) 07/27/2024 Depression, unspecified depression type (ICD-10 - F32.A) 05/25/2025 Screening for lipid disorders (ICD-10 - Z13.220) 04/30/2025 Pain in right lower leg (ICD-10 - M79.661) 04/30/2025 Pain in left lower leg (ICD-10 - M79.662) 07/27/2024 Gastroesophageal reflux disease, unspecified whether esophagitis present (ICD-10 - K21.9) 05/25/2025 BMI 27.0-27.9,adult (ICD-10 - Z68.27) 07/27/2024 Encounter for immunization (ICD-10 - Z23) 04/30/2025 BMI 27.0-27.9,adult (ICD-10 - Z68.27) 07/27/2024 Nausea (ICD-10 - R11.0) 07/27/2024 Tobacco use disorder (ICD-10 - Z72.0) 07/27/2024 Well adult exam (ICD-10 - Z00.00) 07/27/2024 Other Mamm and cologuard were ordered by COMB TENDER Plan Of Treatment Pending Test Test Name Order Date CT Scan : Abdomen & Pelvis w & w/o contr ast 05/11/2024 Insurance Providers Payer Name Payer Address Payer Phone Subscriber Number Group Number Insured Name Patient Relationship to Insured Coverage Start Date Coverage End Date [employer] [address] [place] [address] [id number] EDNA OCONNOR Self - patient is the insured Medications Administered Medication Instructions Date of Administration Dosage Notes Dexamethasone 01/17/2022 1 mL Dexamethasone 03/15/2022 1 mL Dexamethasone 06/15/2022 1 mL Medical (General) History Medical History History ICD Code Hypertension Anxiety Ulcers Tobacco Addiction Follows with Dr. Gaines for COMB TENDER care Recovering Drug Addict Surgical History Surgery Date(Month/Year) Gastric Bypass 2009 Rt Hip Replacement -Dr Lowe 10/25/2022 Cholecysectomy 09/2022
--- OUTSIDE RECORDS SUMMARY | 2025-06-17 09:57 | XMS_ITS | Clinical Summary ---
Author Organization [facility] Address [address] [place] [address] Care Team Providers Care Lace Finisher Name Role Phone Trevor Shah MD Primary Care Provider [phone] Social History Tobacco Use Types Packs/Day Years Used Date Smoking Tobacco: Never Assessed Abuse Screen Answer Date Recorded Unsafe at Home or Work/School Not on file Feels Threatened by Someone? Not on file Does Anyone Keep You from Co ntacting Others or Doint Things Outside the Home? Not on file 08/30/2023 Physical Sign of Abuse Present Not on file 1 Housing Stability Answer Date Recorded Current Living Arrangements Not on file 08/18 Potentially Unsafe Housing Conditions Not on tere e 08/30/2023 Family and Community Support Answer Kvng e Recorded Help with Day-to-Day Activities Not on file 08/30/2023 Lonely or Isolated Not on file 08/30/2023 Employment Answer Date Recorded Do you want help finding or keeping work or a petty b? Not on file 08/30/2023 Disabilities Answer Date Recorded Concentrating, Remembering, or Making Decisions Difficulty Not on file 08/30/2023 Doing Errands Independently Difficulty Not on fi le 08/30/2023 Education Answer Date Recorded Help with school or training? Not on file Preferred Language Not on file 08/30/2023 Comments Unknown Sex and Gender Information Value Date Recorded Sex Assigned at Not on file Legal Sex Female 11:03 AM EST Gender Identity Not on file Sexual Orientation Not on file Plan of Treatment Health Maintenance Due Date Last Done Comments ANNUAL PHYSICAL 1973 Annual Gynecologic Pelvic and Breast Exam 1973 HEPATITIS C SCREENING 1973 TDAP/TD VACCINES (1 - Tdap) 1992 MAMMOGRAM 2013 COLOGUARD 2018 COLON CANCER SCREENING 5 YEAR SIGMOIDOSCOPY 2018 COLONOSCOPY [address] CANCER SCREENING 2018 CT COLONOGRAPHY 2018 FECAL OCCULT BLOOD TEST 2018 FIT Testing (1 year) 2018 Pneumococcal Vaccine 50+ (1 of 1 - PCV) 2023 ZOSTER VACCINE (1 of 2) 2023 COVID-19 Vaccine (1 - season) 2024 INFLUENZA VACCINE 08/18/2025 Insurance [facility] PPO Care Teams Lace Finisher Relationship Specialty Start Date End Date Trevor Shah MD [address] [facility] [address] [place] [id number] PCP - General Family Medicine 10/22/22
[2025-06-17 11:25] LABS: Hepatitis C Ab Qual. W/ RFX NEGATIVE (Negative)
[2025-06-18 05:11] LABS: Hepatitis B Surface Antigen Negative (Negative)
== END 2025-06-17 23:59 | disposition home or self-care (01) ==
PROVIDERS: PCP Physician Assistant; Visit Provider Nurse Practitioner Obstetrics & Gynecology
DX: Z11.3 Encounter for screening for infections with a predominantly sexual mode of transmission (principal)
CPT/HCPCS: 36415; 86803; 87340; 87389

== ENCOUNTER 2025-07-23 10:48 | Outpatient (CLI) | payer BC, SELFPAY ==
--- OUTSIDE RECORDS SUMMARY | 2022-05-16 09:00 | XMS_ITS | Continuity of Care Document ---
Author Organization [facility] Address [address] [place] [address] Phone Care Team Providers Care Safety Council Director Name Role Phone Brianna Kee Unavailable Unavailable Procedures Procedure Date Bitewings Four Films Intraoral Periapical First Film Comprehensive Oral Evaluatio n New Or Established Caries Risk Assessment Low Prophylaxis Adult Advance Directives Directive Yes / No Effective Date File Name No Information Encounters Encounter Description Practice Location Reason(s) For Visit Diagnoses Date Provider [facility], [address] [place] [address], [facility], tel:[phone] [facility] Risk for dental caries, low 2021 Chilango Angela. [address] [place] [address], [id number], [place]. tel:[phone] [facility], [address] [place] [address], [facility], [place] tel:[phone] 3 [facility] No Information 2018 [place] Brianna. [address] [place] [address] [place], [place], [id number], [place]. tel:[phone] [facility], [address] [place] [address], [id number], [place] tel:[phone] 3 [facility] No Information 2017 [place] Brianna. [address] [place] [facility] [address] [place], [place], [id number], [place]. tel:[phone] [facility], [address] [place] [address], [facility], tel:[phone] 3 [facility] Reversible pulpitis 2016 Pal[place] Jose Alejandro. [address] [place] [address] [place] [address], [id number], . tel:[phone] [facility] [place], [address] [place] [address], [facility], tel:[phone] 3 [facility] Dental caries on pit and fissure surfc penetrat into dentin 2016 Louie Blount. [address] [place] [address] [place] [address], [id number], . tel:[phone] [facility] [place], [address] [place] [address], [facility], tel:[phone] 3 [facility] No Information 2016 [place] Reed. [address] [place] [address], [id number], [place]. tel:[phone] Family History Family Member Type Diagnosis Age At Onset No Information Payers Payer name Insurance type Covered republican ID Jan jauregui(s) [facility] [place] CI [id number] Social History Type Description Quantity Date Captured Comments Sex Female Smoking Status No Information Chief Complaint And Reason For Visit No Information History Of Present Illness Encounter Date Complaint History Of Prese nt Illness No Information Instructions Date Instruction Additional Infor mation No Information Assessments Type Assessment Date No Information
--- OUTSIDE RECORDS SUMMARY | 2024-10-14 10:45 | XMS_ITS ---
Author Organization [facility] Address [address] [place] [id number] Care Team Providers Care Director Of Physician Practices Name Role Phone Giselle Blood Primary Care Provider Bernice Flores Unavailable [phone] Allergies No Known Allergies Results Component Value Reference Range Notes CBC Fingerstick (in house) Reviewed date:10/14/2024 04:34:14 PM Interpretation: Performing Lab: Notes/Report: wbc 11.3 3.5 - 10 lym 28.7% 15 - 50 mid 7.2% 2 - 15 gran 64.1% 35 - 80 rbc 5.35 3.5 - 5.5 hgb 13.5 11.5 - 16.5 hct 43.5 35 - 55 mcv 81.2 75 - 100 mch 25.2 25 - 35 mchc 31.0 31 - 38 plat 259 100 - 400 REASON FOR VISIT cough for 2 months, can't get anything up Medications Medication SIG (Take, Route, Frequency, Duration) Notes Start Date End Date Status Omeprazole 40 MG Take 1 capsule by mouth once daily Active Ondansetron 4 MG 1 tablet on the tongue and allow to dissolve Orally three times a day as needed 04/10/2024 Active Promethazine HCl 25 MG 1 tab Orally ever y 6 hrs, prn 04/30/2024 Active hydroCHLOROthiazide 25 MG 1 tab(s) orall y once a day Active Airsupra 90-80 MCG/ACT 2 puffs as needed Inhalation Six times a day 10/14/2024 Active Medrol 4 MG as directed orally daily; Duration: 6 days 10/14/2024 Active Lisinopril 10 MG 1 tab(s) orally once a day Active Promethazine-DM 6.25-15 MG/5ML 5 ml oral ly every 6 hours prn 10/14/2024 Active QUEtiapine Fumarate 50 MG 1 tablet at be dtime Orally Once a day Active Doxycycline Monohydrate 100 MG 1 capsule Orally Twice a day; Duration: 10 day(s) 10/14/2024 Active Trintellix 20 MG 1 tablet Orally Once a day Active lamoTRIgine 50 MG 1 tablet on the tongue and allow to dissolve Orally Once a day Active Vital Signs Blood pressure systolic 136 mm Hg 10/14/20 24 Blood pressure diastolic 80 mm Hg 024 Heart Rate 84 /min 10/14/2024 Height 67 in 10/14/2024 Weight 171.8 lbs 10/14/2024 BMI 26.90 kg/m2 10/14/2024 Encounters Encounter Location Date Provider Diagnosis [facility] [address] [facility] [address] [place] [address], [place] [id number] 10/14/2024 Bernice Flores Acute URI J06.9 and Bronchitis J40 Assessments Encounter Date Diagnosis (ICD Code) Assessment Notes Treatment Notes Treatment Clinical Notes Section Notes 10/14/2024 Acute URI (ICD-10 - J06.9) Gave a sample of airsupra. 10/14/2024 Bronchitis (ICD-10 - J40) Plan Of Treatment Medication Medication Name Sig Start Date Stop Date Notes Airsupra 90-80 MCG/ACT 2 puffs as needed Inhalation Six times a day 10/14/2024 Medrol 4 MG as directed orally d aily; Duration: 6 days 10/14/2024 Promethazine-DM 6.25-15 MG/5ML 5 ml oral ly every 6 hours prn 10/14/2024 Doxycycline Monohydrate 100 MG 1 capsule Orally Twice a day; Duration: 10 day(s) 10/14/2024 Treatment Notes Assessment Notes Acute URI Gave a sample of air supra. Next Appt Details Follow Up: prn, Reason: Progress Notes * EDNA JAMADOB:[birth year] (50 yo F)Acc No.[id number]:10/14/2024 Progress Notes Patient: EDNA CRAIN Provider: CHUYITA Molina :1975 A ge:49 Y S ex:Female Date:10/14/2024 Address:[address] [place] [address] Kimberley CRUZ, [id number] Pcp:Giselle Blood Subjective: * Chief Complaints: * 1 . Cough for 2 months, can't get anything up. * HPI: E NT/respiratory: 49 year old female presents with c/o cough P t complains of cough for about 2 months. Pt states that she is able to cough stuff up in the mornings but throughout the day nothing comes up. Pt states she has a lot of congestion in her chest that is stuck . * ROS: D ERMATOLOGY: no R mirela. n o H petra. G ASTROENTEROLOGY: no N ausea. n o V omiting. U ROLOGY: no D ifficulty urinating. n o B lood in urine. 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 * Surgical History: G astric Bypass 2009, Rt Hip Replacement -Dr Lowe 10/25/2022, Cholecysectomy 09/2022. * Hospitalization/Major Diagno stic Procedure: Elvis christie Past Hospitalization. * Family History: F ather: , COPD, diagnosed with Hypertension. M other: , COPD. 2 brother(s) , 2 sister(s) . 1 son(s) , 2 daughter(s) . . * Social History: C URRENT TOBACCO USE: Yes . M arital Status: . * Medications: T aking Trintellix 20 MG Tablet 1 tablet Orally Once a day , Taking lamoTRIgine 50 MG Tablet Disintegrating 1 tablet on the tongue and allow to dissolve Orally Once a day , Taking QUEtiapine Fumarate 50 MG Tablet 1 tablet at bedtime Orally Once a day , Taking Lisinopril 10 MG Tablet 1 tab(s) orally once a day , Taking Omeprazole 40 MG Capsule Delayed Release Take 1 capsule by mouth once daily , Taking Ondansetron 4 MG Tablet Disintegrating 1 tablet on the tongue and allow to dissolve Orally three times a day as needed , Taking Promethazine HCl 25 MG Tablet 1 tab Orally every 6 hrs, prn , Taking hydroCHLOROthiazide 25 MG Tablet 1 tab(s) orally once a day , Medication List reviewed and reconciled with the patient * Allergies: N .K.D.A. Objective: * Vitals: W t:171.8, Temp:98.3, BP:136/80, HR:84, O2 Sat:94% on RA, Nurse:parish, Ht: 67, BMI:26.90. * Examination: E NT/Respiratory: General Appearance: N AD. E ars: a uditory canals normal bilaterally, TM's WNL. N ose : turbinates red, congested. S inuses : non tender bilaterally. O ral cavity : n o erythema or exudate seen on pharynx. N shara : n o cervical lymphadenopathy. H eart : R RR, normal S1 S2, no murmurs. L ungs: expiratory wheezes, no rales. Assessment: * Assessment: 1. A mary VILLAFANA - J06.9 (Primary) 2 . B tamiko - J40 Plan: * Treatment: Value Reference Range w bc 11.3 3.5 - 10 * l ym 28.7% 15 - 50 * m id 7.2% 2 - 15 * g ran 64.1% 35 - 80 * r bc 5.35 3.5 - 5.5 * h gb 13.5 11.5 - 16.5 * h ct 43.5 35 - 55 * m cv 81.2 75 - 100 * m ch 25.2 25 - 35 * m chc 31.0 31 - 38 * p lat 259 100 - 400 * Fabiana Camp 10/14/2024 2:49:0 7 PM > , Provider reviewed results while patient in office.Bernice Flores 10/14/2024 4:34:10 PM > Notes: Gave a sample of airsupra.??2.?Bronchitis? Start Medrol Tablet Therapy Pack, 4 MG, as directed, orally, daily, 6 days, 1, Refills 0;?Start Doxycycline Monohydrate Capsule, 100 MG, 1 capsule, Orally, Twice a day, 10 day(s), 20 Capsule, Refills 0;?Start Airsupra Aerosol, 90-80 MCG/ACT, 2 puffs as needed, Inhalation, Six times a day. ? * Procedure Codes: 3 6416 CAPILLARY BLOOD DRAW, [address] [place], [address] CBC WITH AUTO DIFF * Follow Up: p rn * Images: Billing Information: * Visit Code: 59252 Office Visit, Est Pt., Level 3. * Procedure Codes: 00862 CAPILLARY BLOOD [place]RAW. [address] [place]. [address] CBC WITH AUTO DIFF. * Electronic signature of CHUYITA Mayberry on 07/23/2025 at 10:50 AM EDT Sign off status: Pending * Provider: CHUYITA Molina Date: 1 12/14/2023 Generated for Markeli ng/Faleeanng/eTransmitting on: 0 07/23/2025 10:50 AM EDT History and Physical Notes * HPI (History of Present Illness) Category Sub-Category Detail Notes Category Not es ENT/respiratory cough Pt complains of cough for about 2 months. Pt states that she is able to cough stuff up in the mornings but throughout the day nothing comes up. Pt states she has a lot of congestion in her chest that is stuck Examination Category Sub-Category Detail Notes Category Not es ENT/Respiratory Oral cavity : no erythema or exudate s een on pharynx Sinuses : non tender bilateral ly Ears: auditory canals norm al bilaterally, TM's WNL Neck : no cervical lymphade nopathy Heart : RRR, normal S1 S2, n o murmurs Lungs: expiratory wheezes, no rales General Appearance: NAD Nose : turbinates red, priscilla ested
--- OUTSIDE RECORDS SUMMARY | 2024-11-04 06:00 | XMS_ITS ---
Author Organization [facility] Address [address] [place] [id number] Care Team Providers Care Lacing String Cutter Name Role Phone Giselle Blood Primary Care Provider Bernice Flores Unavailable [phone] Allergies No Known Allergies Results Component Value Reference Range Notes CBC Fingerstick (in house) Reviewed date:11/04/2024 12:42:07 PM Interpretation: Performing Lab: Notes/Report: wbc 6.8 3.5 - 10 lym 29.4% 15 - 50 mid 7.1% 2 - 15 gran 63.5% 35 - 80 rbc 4.79 3.5 - 5.5 hgb 12.0 11.5 - 16.5 hct 38.5 35 - 55 mcv 80.3 75 - 100 mch 25.0 25 - 35 mchc 31.1 31 - 38 plat 297 100 - 400 CXR Reviewed date:11/05/2024 09:17:03 AM Interpretation: Performing Lab: Notes/Report: Pulmonary Function Complete Reviewed date:11/26/2024 12:35:24 PM Interpretation: Performing Lab: Notes/Report: REASON FOR VISIT coughing Medications Medication SIG (Take, Route, Frequency, Duration) Notes Start Date End Date Status Promethazine-DM 6.25-15 MG/5ML 5 ml oral ly every 6 hours prn 10/14/2024 Active Ventolin HFA 108 (90 Base) MCG/ACT 1 puff as needed Inhalation every 4 hrs, prn 11/04/2024 Active Lisinopril 10 MG 1 tab(s) orally once a day Active hydroCHLOROthiazide 25 MG 1 tab(s) orall y once a day Active Omeprazole 40 MG Take 1 capsule by mouth once daily Active QUEtiapine Fumarate 50 MG 1 tablet at be dtime Orally Once a day Active lamoTRIgine 50 MG 1 tablet on the tongue and allow to dissolve Orally Once a day Active Trintellix 20 MG 1 tablet Orally Once a day Active Vital Signs Blood pressure systolic 140 mm Hg 11/04/20 24 Blood pressure diastolic 80 mm Hg 024 Heart Rate 60 /min 11/04/2024 Height 67 in 11/04/2024 Weight 176.4 lbs 11/04/2024 BMI 27.63 kg/m2 11/04/2024 Encounters Encounter Location Date Provider Diagnosis [facility] [address] [facility] [address] [place] [id number] 11/04/2024 Bernice Rejinelson Chronic cough R05.3 Assessments Encounter Date Diagnosis (ICD Code) Assessment Notes Treatment Notes Treatment Clinical Notes Section Notes 11/04/2024 Chronic cough (ICD-10 - R05.3) The inhaler helped but her dog chewed it up. Will send ventolin and get a CXR and PFT's. Plan Of Treatment Medication Medication Name Sig Start Date Stop Date Notes Ventolin HFA 108 (90 Base) MCG/ACT 1 puff as needed Inhalation every 4 hrs, prn 11/04/2024 Treatment Notes Assessment Notes Chronic cough The inhaler helped b ut her dog chewed it up. Will send ventolin and get a CXR and PFT's. Next Appt Details Follow Up: via phone to repo rt test results, Reason: Progress Notes * EDNA JAMADOB:[birth year] (50 yo F)Acc No.[id number]:11/04/2024 Progress Notes Patient: EDNA CRAIN Provider: CHUYITA Molina :1975 A ge:49 Y S ex:Female Date:11/04/2024 Address:[address] [place] [address] [place], [id number] Pcp:Giselle Blood Subjective: * Chief Complaints: * 1 . Coughing. * HPI: E NT/respiratory: The patient is here today with c/o a persistent cough for about 3-4 months. Pt states she will sometime get sputum up and other times dry. Pt states she has had a metallic taste in her mouth. 49 year old female presents with c/o cough. c/o Chest Pain. c/o Short of Breath. Denies : sore throat. D enies : Fever. * ROS: D ERMATOLOGY: no R mirela. n o H petra. G ASTROENTEROLOGY: no N ausea. n o V omiting. n o D iarrhea.? U ROLOGY: no D ifficulty urinating. n o B lood in urine. 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 * Surgical History: G astric Bypass 2009, Rt Hip Replacement -Dr Lowe 10/25/2022, Cholecysectomy 09/2022. * Family History: F ather: , COPD, [...] capsule by mouth once daily , Taking hydroCHLOROthiazide 25 MG Tablet 1 tab(s) orally once a day , Taking Promethazine-DM 6.25-15 MG/5ML Syrup 5 ml orally every 6 hours prn , Discontinued Ondansetron 4 MG Tablet Disintegrating 1 tablet on the tongue and allow to dissolve Orally three times a day as needed , Discontinued Promethazine HCl 25 MG Tablet 1 tab Orally every 6 hrs, prn , Discontinued Medrol 4 MG Tablet Therapy Pack as directed orally daily , Discontinued Doxycycline Monohydrate 100 MG Capsule 1 capsule Orally Twice a day , Discontinued Airsupra 90-80 MCG/ACT Aerosol 2 puffs as needed Inhalation Six times a day , Medication List reviewed and reconciled with the patient * Allergies: N .K.D.A. Objective: * Vitals: W t:176.4, Temp:97.8, BP:140/80, HR:60, O2 Sat:99% on RA, Nurse:JOSE, Ht: 67, Repeat BP:120/78, BMI:27.63. * Examination: E NT/Respiratory: General Appearance: N AD. E ars: a uditory canals normal bilaterally, TM's WNL. N ose : n ormal, no lesions, nares patent. S inuses : non tender bilaterally. O ral cavity : n o erythema or exudate seen on pharynx. N shara : no cervical lymphadenopathy. H eart : R RR, normal S1 S2, no murmurs. L ungs: c lear to auscultation bilaterally. Assessment: * Assessment: 1. C hronic cough - R05.3 (Primary) Plan: * Treatment: Value Reference Range w bc 6.8 3.5 - 10 * l ym 29.4% 15 - 50 * m id 7.1% 2 - 15 * g ran 63.5% 35 - 80 * r bc 4.79 3.5 - 5.5 * h gb 12.0 11.5 - 16.5 * h ct 38.5 35 - 55 * m cv 80.3 75 - 100 * m ch 25.0 25 - 35 * m chc 31.1 31 - 38 * p lat 297 100 - 400 * Malathi Marie 11/04/2024 11 :00:45 AM > , Provider reviewed results while patient in office.Bernice Flores 11/04/2024 12:42:03 PM > ?Imaging: CXR (Performed Date - 11/04/2024)* Bernice Flores 11/05/2024 9 :16:59 AM > see TE ?Imaging: Pulmonary Function Complete (Performed Date - 11/12/2024)* Goldie Chin 11/05/2024 11:1 0:53 AM > no auth required; CPT code 48306; faxed to [facility] Scheduling 11/10/2024 at 10:00amCrBernice wharton 11/26/2024 12:35:20 PM > see TE Notes: The inhaler helped but her dog chewed it up. Will send ventolin and get a CXR and PFT's. ? * Procedure Codes: 9 4760 [place], [address] CAPILLARY BLOOD DRAW, [address] CBC WITH AUTO DIFF * Follow Up: v ia phone to report test results * Images: Billing Information: * Visit Code: 10825 Office Visit, Est Pt., Level 3. * Procedure Codes: [address] [place]. [address] CAPILLARY BLOOD DRAW. 95763 CBC WITH AUTO DIFF. * Electronic signature of CHUYITA Mayberry on 07/23/2025 at 10:51 AM EDT Sign off status: Pending * Provider: CHUYITA Molina Date: 1 01/05/2024 Generated for Printi ng/Faxing/eTransmitting on: 0 07/23/2025 10:51 AM EDT History and Physical Notes * HPI (History of Present Illness) Category Sub-Category Detail Notes Category Not es ENT/respiratory sore throat Short of Breath Chest Pain cough Fever Examination Category Sub-Category Detail Notes Category Not es ENT/Respiratory Oral cavity : no erythema or exudate s een on pharynx Sinuses : non tender bilateral ly Ears: auditory canals norm al bilaterally, TM's WNL Neck : no cervical lymphade nopathy Heart : RRR, normal S1 S2, n o murmurs Lungs: clear to auscultatio n bilaterally General Appearance: NAD Nose : normal, no lesions, nares patent
--- OUTSIDE RECORDS SUMMARY | 2025-03-26 11:15 | XMS_ITS ---
Author Organization [facility] Address [address] [facility] [address] [place] [id number] Care Team Providers Care Social Science Teacher Name Role Phone Giselle Blood Primary Care Provider [phone] Bernice Flores Unavailable [phone] Allergies No Known Allergies Results Component Value [...] y once a day Active Vital Signs Blood pressure systolic 128 mm Hg 03/26/20 25 Blood pressure diastolic 70 mm Hg 025 Heart Rate 69 /min 03/26/2025 Height 67 in 03/26/2025 Weight 172 lbs 03/26/2025 BMI 26.94 kg/m2 03/26/2025 Encounters Encounter Location Date Provider Diagnosis [facility] [address] [facility] [address] [place] [id number] 03/26/2025 Bernice Mendozanelson Generalized anxiety disorder F41.1 [...] * EDNA JAMADOB:[birth year] (50 yo F)Acc No.[id number]:03/26/2025 Progress Notes Patient: Jamila DONNYEDNA Provider: CHUYITA Molina :1975 A ge:49 Y S ex:Female Date:03/26/2025 Address:[address] [place] [address] [place], [id number] Pcp:Giselle Blood Subjective: * Chief Complaints: * [...] Tobacco Addiction, Follows with Dr. 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 * Surgical [...] disorder - F41.1 (Primary) 2 . B [place] 26.0-26.9,adult - Z68.26 Plan: * Treatment: Notes: Discussed with Dr. Shah. He will write a rx for xanax. See TE.?? * Procedure Codes: 3 074F SYST BP LT 130 MM HG, 3078F DIAST BP < 80 MM HG * Follow Up: w [facility] psychiatry * Images: Billing Information: * Visit Code: 08874 Office Visit, Est Pt., Level 3. * Procedure Codes: 3074F SYST BP LT 130 MM HG. 3078F DIAST BP < 80 MM HG. * Electronic signature of CHUYITA Mayberry on 07/23/2025 at 10:51 AM EDT Sign off status: Pending * Provider: CHUYITA Molina Date: 0 03/26/2025 Generated for Bryce vogel/Miya/Oral on: 0 07/23/2025 10:51 AM EDT History [...]
--- OUTSIDE RECORDS SUMMARY | 2025-04-30 09:30 | XMS_ITS ---
Author Organization [facility] Address [address] [facility] [address] [place] [id number] Care Team Providers Care Earth Science Technician Name Role Phone Giselle Blood Primary Care Provider Bernice Flores Unavailable [phone] Allergies No Known Allergies Results Component Value Reference Range Notes CBC Fingerstick (in house) Reviewed date:05/02/2025 11:22:55 PM Interpretation: Performing Lab: Notes/Report: wbc 10.0 3.5 - 10 lym 27.0 15 - 50 mid 6.7 2 - 15 gran 66.3 35 - 80 rbc 4.75 3.5 - 5.5 hgb 12.3 11.5 - 16.5 hct 39.3 35 - 55 mcv 82.7 75 - 100 mch 25.9 25 - 35 mchc 31.3 31 - 38 plat 268 100 - 400 Ankle-brachial index Reviewed date:05/12/2025 02:03:04 PM Interpretation:Normal Performing Lab: Notes/Report: Normal REASON FOR VISIT sore throat, cough, circulation Medications Medication SIG (Take, Route, Frequency, Duration) Notes Start Date End Date Status Omeprazole 40 MG Take 1 capsule by mouth once daily for 90 days; Duration: 90 Active Lisinopril 10 MG 1 tab(s) orally once a day; Duration: 30 days Active Albuterol Sulfate HFA 108 (9 0 Base) MCG/ACT 1 puff as needed Inhalation every 4 hrs, prn 04/30/2025 Active Xanax 0.25 MG 1 tablet Orally Twic e a day, prn 03/26/2025 Active QUEtiapine Fumarate 50 MG 1 tablet at be dtime Orally Once a day Active lamoTRIgine 50 MG 1 tablet on the tongue and allow to dissolve Orally Once a day Active Trintellix 20 MG 1 tablet Orally Once a day Active Ventolin HFA 108 (90 Base) MCG/ACT 1 puff as needed Inhalation every 4 hrs, prn 11/04/2024 Active hydroCHLOROthiazide 25 MG 1 tab(s) orall y once a day Active Benzonatate 200 MG 1 capsule as needed Orally Three times a day, prn 04/30/2025 Active Vital Signs Blood pressure systolic 120 mm Hg 04/30/20 25 Blood pressure diastolic 68 mm Hg 025 Heart Rate 72 /min 04/30/2025 Height 67 in 04/30/2025 Weight 176.4 lbs 04/30/2025 BMI 27.63 kg/m2 04/30/2025 Encounters Encounter Location Date Provider Diagnosis [facility] [address] [facility] [address] [id number] 04/30/2025 Bernice Flores Acute URI J06.9 ; Bronchitis J40 ; Pain in right lower leg M79.661 ; Pain in left lower leg M79.662 and BMI 27.0-27.9,adult Z68.27 Assessments Encounter Date Diagnosis (ICD Code) Assessment Notes Treatment Notes Treatment Clinical Notes Section Notes 04/30/2025 Acute URI (ICD-10 - J06.9) 04/30/2025 Bronchitis (ICD-10 - J40) 04/30/2025 Pain in right lower leg (ICD-10 - M79.661) 04/30/2025 Pain in left lower leg (ICD-10 - M79.662) 04/30/2025 BMI 27.0-27.9,adult (ICD-10 - Z68.27) Plan Of Treatment Medication Medication Name Sig Start Date Stop Date Notes Albuterol Sulfate HFA 108 (9 0 Base) MCG/ACT 1 puff as needed Inhalation every 4 hrs, prn 04/30/2025 Benzonatate 200 MG 1 capsule as needed Orally Three times a day, prn 04/30/2025 Next Appt Details Follow Up: via phone to repo rt test results, Reason: Progress Notes * ROSALIO JAMA:[birth year] (50 yo F)Acc No.[id number]:04/30/2025 Progress Notes Patient: EDNA CRAIN Provider: CHUYITA Molina :1975 A ge:49 Y S ex:Female Date:04/30/2025 Address:[address] [place] [address] [place], [id number] Pcp:Giselle Blood Subjective: * Chief Complaints: * 1 . Sore throat, cough, circulation. * HPI: E NT/respiratory: 49 year old female presents with c/o sore throat. c/o cough. Denies : nasal congestion. D enies : Fever. D enies : ear pain. H PI: c/o Patient is here today for P t sts her legs and feet have been numb as well and she is worried about her circulation. * ROS: D ERMATOLOGY: no R mirela. n o H petra. G ASTROENTEROLOGY: no N ausea. n o V omiting. n o D iarrhea.? U ROLOGY: no D ifficulty urinating. n o B lood in urine. 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 * Surgical History: G astric Bypass 2009, Rt Hip Replacement -Dr Lowe 10/25/2022, Cholecysectomy 09/2022. * Family History: F ather: , COPD, diagnosed with Hypertension. M other: , COPD. 2 brother(s) , 2 sister(s) . 1 son(s) , 2 daughter(s) . . * Social History: C URRENT TOBACCO USE: Yes . M arital Status: . * Medications: T aking hydroCHLOROthiazide 25 MG Tablet 1 tab(s) orally once a day , Taking Ventolin HFA 108 (90 Base) MCG/ACT Aerosol Solution 1 puff as needed Inhalation every 4 hrs, prn , Taking Trintellix 20 MG Tablet 1 tablet Orally Once a day , Taking lamoTRIgine 50 MG Tablet Disintegrating 1 tablet on the tongue and allow to dissolve Orally Once a day , Taking QUEtiapine Fumarate 50 MG Tablet 1 tablet at bedtime Orally Once a day , Taking Xanax 0.25 MG Tablet 1 tablet Orally Twice a day, prn , Taking Lisinopril 10 MG Tablet 1 tab(s) orally once a day , Taking Omeprazole 40 MG Capsule Delayed Release Take 1 capsule by mouth once daily for 90 days , Medication List reviewed and reconciled with the patient * Allergies: N .K.D.A. Objective: * Vitals: W t: 176.4, Temp: 98.2, BP: 120/68, HR: 72, Nurse: jennifer, Ht: 67, BMI:27.63. * Examination: G eneral Examination: General Appearance: N AD. H EENT: s clera and conjunctiva clear, PERRLA, TM's normal, translucent, nose congested. O ral cavity: n o lesions, mucosa moist and WNL, no erythema. N shara: s upple, no lymphadenopathy. C hest: n ormal shape and expansion. H eart: R SR. L ungs: e xpiratory wheezes, no rales. E xtremities: n o leg edema, no ttp. Assessment: * Assessment: 1. A cute URI - J06.9 (Primary) 2 . B jennitis - J40 3 .?Pain in right lower leg - M79.661 4 . P ain in left lower leg - M79.662 5 . B [place] 27.0-27.9,adult - Z68.27 Plan: * Treatment: Value Reference Range w bc 10.0 3.5 - 10 * l ym 27.0 15 - 50 * m id 6.7 2 - 15 * g ran 66.3 35 - 80 * r bc 4.75 3.5 - 5.5 * h gb 12.3 11.5 - 16.5 * h ct 39.3 35 - 55 * m cv 82.7 75 - 100 * m ch 25.9 25 - 35 * m chc 31.3 31 - 38 * p lat 268 100 - 400 * Sharla Gibson 04/30/2025 01:3 5:01 PM EDT > Provider reviewed results while patient in office. 2.?Bronchitis? Start Albuterol Sulfate HFA Aerosol Solution, 108 (90 Base) MCG/ACT, 1 puff as needed, Inhalation, every 4 hrs, prn, 1, Refills 1.??3.?Pain in right lower leg?Imaging: Ankle-brachial index (Performed Date - 05/07/2025)?Normal* Goldie Chin 04/30/2025 02:1 1:13 PM EDT >auth#[id number]; valid 04/30/2025- 05/29/2025; CPT code 02276; faxed to [facility] KaelRocíoRaine rosawilly Palmer 05/12/2025 02:02:55 PM EDT > Left voicemail informing of normal lab results 4.?Pain in left lower leg?Imaging: Ankle-brachial index (Performed Date - 05/07/2025)?Normal* Goldie Chin 04/30/2025 02:1 1:13 PM EDT >auth#[id number]; valid 04/30/2025- 05/29/2025; CPT code 83249; faxed to [facility] ManojRainewilly Palmer 05/12/2025 02:02:55 PM EDT > Left voicemail informing of normal lab results * Procedure Codes: 3 6416 CAPILLARY BLOOD DRAW, 39808 CBC WITH AUTO DIFF, G8420 BMI<30 AND >=22 CALC & DOCU, G8783 BP SCR PRFRM RCMDD DEFIND SCR INTVL, G8752 MOST RECENT SYSTOLIC BP < 140MM HG, G8754 MOST RECENT DIASTOLIC BP < 90MM HG * Follow Up: v ia phone to report test results * Images: Billing Information: * Visit Code: 29430 Office Visit, Est Pt., Level 3. * Procedure Codes: 75687 CAPILLARY BLOOD DRAW. 95143 CBC WITH AUTO DIFF. G8420 BMI<30 AND >=22 CALC & DOCU. G8783 BP SCR PRFRM RCMDD DEFIND SCR INTVL. G8752 MOST RECENT SYSTOLIC BP < 140MM HG. G8754 MOST RECENT DIASTOLIC BP < 90MM HG. * Electronic signature of CHUYITA Mayberry on 07/23/2025 at 10:51 AM EDT Sign off status: Pending * Provider: CHUYITA Molina Date: 0 04/30/2025 Generated for Markeli ng/Faleeanng/eTransmitting on: 0 07/23/2025 10:51 AM EDT History and Physical Notes * HPI (History of Present Illness) Category Sub-Category Detail Notes Category Not es ENT/respiratory sore throat ear pain cough Fever nasal congestion HPI Patient is here today for Pt sts her legs and feet have been numb as well and she is worried about her circulation Examination Category Sub-Category Detail Notes Category Not es General Examination HEENT: sclera and c onjunctiva clear, PERRLA, TM's normal, translucent, nose congested Heart: RSR Lungs: expiratory wheezes, no rales Extremities: no leg edema, no ttp General Appearance: NAD Neck: supple, no lymphaden opathy Oral cavity: no lesions, mucosa m oist and WNL, no erythema Chest: normal shape and exp ansion
--- OUTSIDE RECORDS SUMMARY | 2025-05-25 06:00 | XMS_ITS ---
Author [facility] Address [address] [place] [id number] Care Team Providers Care Power Plant Assistant Name Role Phone Giselle Blood Primary Care Provider Allergies No Known Allergies Results Component Value Reference Range Notes P-Comprehensive Metabolic Pa tyler (CMP) Reviewed date:05/27/2025 08:18:13 AM Interpretation:bun 27, alk phos 133 Performing Lab: Notes/Report: Test performed by [employer] [facility] [facility] , [address], [place] [address] Remi Manley MD, Bunch Trimmer Mold CLIA: [id number] Sodium 142 135-145 mmol/L Potassium 4.4 3.5-5.3 mmol/L Chloride 107 97-108 mmol/L CO2 25 20-32 mmol/L Glucose 96 65-99 mg/dL BUN 27 6-20 mg/dL Creatinine 0.66 0.50-1.00 mg/dL Calcium 9.4 8.6-10.4 mg/dL eGFR by Creatinine 106 >59 mL/min/1.73m2 Protein 6.3 6.0-8.3 g/dL Albumin 4.2 3.5-5.3 g/dL Alkaline Phosphatase 133 35-121 IU/L ALT (SGPT) 10 <5-47 IU/L AST (SGOT) 13 <5-40 IU/L Bilirubin, Total 0.3 <0.2-1.2 mg/dL A/G Ratio 2.0 1.1-2.5 P-Lipid Panel Reviewed date:05/27/2025 08:18:13 AM Interpretation:Normal Performing Lab: Notes/Report: Test performed by [employer] [employer] [address] [facility] , [address], [place] [address] Remi Manley MD, Bunch Trimmer Mold MONICA: [id number] Cholesterol 156 <200 mg/dL Triglycerides 72 <150 mg/dL HDL Cholesterol 54 >39 mg/dL Cholesterol / HDL Ratio 2.89 0.00-4.44 Ratio Non-HDL Cholesterol 102 <130 mg/dL LDL Cholesterol (Calculation) 88 <130 mg/dL LDL Cholesterol Levels* Less than 100 mg/dL Optimal 100 to 129 mg/dL Near Optimal/ Above Optimal 130 to 159 mg/dL Borderline High 160 to 189 mg/dL High 190 mg/dL and above Very High * Categories as recommended by the 2004 ATPIII guidelines LDL/HDL Ratio 1.6 <3.3 Ratio LDL Cholesterol Patient History Test Date: 05/25/2025 LDL Results: 88 Units: mg/dL % Change: - REASON FOR VISIT yearly cpx with labs, Needs labs, mammogram, colon cancer screening, Tdap, & shingles vaccine Medications Medication SIG (Take, Route, Frequency, Duration) Notes Start Date End Date Status Albuterol Sulfate HFA 108 (9 0 Base) MCG/ACT 1 puff as needed Inhalation every 4 hrs, prn 04/30/2025 Active QUEtiapine Fumarate 50 MG 1 tablet at be dtime Orally Once a day Active lamoTRIgine 50 MG 1 tablet on the tongue and allow to dissolve Orally Once a day Active Ventolin HFA 108 (90 Base) MCG/ACT 1 puff as needed Inhalation every 4 hrs, prn 11/04/2024 Active Trintellix 20 MG 1 tablet Orally Once a day Active Lisinopril 10 MG 1 tab(s) orally once a day Active Omeprazole 40 MG Take 1 capsule by mouth once daily for 90 days; Duration: 90 days Active hydroCHLOROthiazide 25 MG 1 tab(s) orall y once a day Active Vital Signs Blood pressure systolic 122 mm Hg 05/25/20 25 Blood pressure diastolic 74 mm Hg 025 Heart Rate 56 /min 05/25/2025 Height 67 in 05/25/2025 Weight 178.6 lbs 05/25/2025 BMI 27.97 kg/m2 05/25/2025 Encounters Encounter Location Date Provider Diagnosis [facility] [address] [place], [place] [id number] 05/25/2025 Giselle Blood Essential hypertensi on I10 ; Generalized anxiety disorder F41.1 ; Screening for lipid disorders Z13.220 and BMI 27.0-27.9,adult Z68.27 Assessments Encounter Date Diagnosis (ICD Code) Assessment Notes Treatment Notes Treatment Clinical Notes Section Notes 05/25/2025 Essential hypertension (ICD-10 - I10) 05/25/2025 Generalized anxiety disorder (ICD-10 - F41.1) 05/25/2025 Screening for lipid disorders (ICD-10 - Z13.220) 05/25/2025 BMI 27.0-27.9,adult (ICD-10 - Z68.27) Plan Of Treatment Medication Medication Name Sig Start Date Stop Date Notes Lisinopril 10 MG 1 tab(s) orally once a day Omeprazole 40 MG Take 1 capsule by mo uth once daily for 90 days; Duration: 90 days hydroCHLOROthiazide 25 MG 1 tab(s) orally once a day Next Appt Details Follow Up: prn, Reason: Progress Notes * ROSALIO JAMA:[birth year] (50 yo F)Acc No.[id number]:05/25/2025 Physical Patient: EDNA CRAIN Provider: Giselle Blood M.D. :1975 A ge:49 Y S ex:Female Date:05/25/2025 Address:[address] [place] [address] [place], [id number] Subjective: * Chief Complaints: * 1 . Yearly cpx with labs. 2. Needs labs, mammogram, colon cancer screening, Tdap, & shingles vaccine. * HPI: H PI: 49 year old female presents with c/o Patient is here today for?complete physical. Pt states she is doing and denies any new concerns. Pt is fasting. P sychology: She continues to follow with [facility] Behavioral health and remained stable on her current medical regimen. * ROS: D ERMATOLOGY: no R mirela. n o H petra. G ASTROENTEROLOGY: no N ausea. n o V omiting. n o D iarrhea.? U ROLOGY: no D ifficulty urinating. n o B lood in urine. * Medical History: H ypertension, Anxiety, Ulcers, Tobacco Addiction, Follows with Dr. Gaines for BILLER care, Recovering Drug Addict. * Surgical History: G astric Bypass 2009, Rt Hip Replacement -Dr Lowe 10/25/2022, Cholecysectomy 09/2022. * Family History: F ather: , COPD, diagnosed with Hypertension. M other: , COPD. 2 brother(s) , 2 sister(s) . 1 son(s) , 2 daughter(s) . . * Social History: C URRENT TOBACCO USE: Yes . M arital Status: . * Medications: T aking Ventolin HFA 108 (90 Base) MCG/ACT Aerosol [...] bedtime Orally Once a day , Taking Omeprazole 40 MG Capsule Delayed Release Take 1 capsule by mouth once daily for 90 days , Taking Albuterol Sulfate HFA 108 (90 Base) MCG/ACT Aerosol Solution 1 puff as needed Inhalation every 4 hrs, prn , Taking hydroCHLOROthiazide 25 MG Tablet 1 tab(s) orally once a day , Taking Lisinopril 10 MG Tablet 1 tab(s) orally once a day , Discontinued Xanax 0.25 MG Tablet 1 tablet Orally Twice a day, prn , Discontinued Benzonatate 200 MG Capsule 1 capsule as needed Orally Three times a day, prn , Medication List reviewed and reconciled with the patient * Allergies: N .K.D.A. Objective: * Vitals: W t: 178.6, Temp: 98.3, BP: 122/74, HR: 56, O2 Sat: 99% on RA, Nurse: JOSE, Ht: 67, BMI:27.97. * Examination: C ardiology: General Appearance: p leasant, NAD. H EENT: s clera and conjunctiva clear, PERRLA, TM's normal, translucent. C arotid upstroke: n ormal, no bruits. H eart sounds: R RR, normal S1, S2. M urmur, click , gallop: n one. L ungs: clear, no rales or wheezes. A bdomen: p ositive BS, soft, nontender. E xtremities:?no leg edema. Assessment: * Assessment: 1. E ssential hypertension - I10 (Primary) 2 . G eneralized anxiety disorder - F41.1 3 . S creening for lipid disorders - Z13.220 4 . B MA 27.0-27.9,adult - Z68.27 Plan: * Treatment: Value Reference Range A /G Ratio 2.0 1.1-2.5 - * A lbumin 4.2 3.5-5.3 - g/dL * A lkaline Phosphatase 133 H 35-121 - IU/L * A LT (SGPT) 10 <5-47 - IU/L * A ST (SGOT) 13 <5-40 - IU/L * B ilirubin, Total 0.3 <0.2-1.2 - mg/dL * B UN 27 H 6-20 - mg/dL * C alcium 9.4 8.6-10.4 - mg/dL * C hloride 107 97-108 - mmol/L * C O2 25 20-32 - mmol/L * C reatinine 0.66 0.50-1.00 - mg/dL * G lucose 96 65-99 - mg/dL * P otassium 4.4 3.5-5.3 - mmol/L * S odium 142 135-145 - mmol/L * P rotein 6.3 6.0-8.3 - g/dL * e GFR by Creatinine 106 >59 - mL/min/1.73m2 * Giselle Blood 05/27/2025 08:17:53 AM EDT > See phone encounter 2.?Screening for lipid disorders?LAB: P-Lipid Panel (Collection Date & Time - 05/25/2025 09:47 AM)?Normal* Value Reference Range C holesterol / HDL Ratio 2.89 0.00-4.44 - Ratio * C holesterol 156 <200 - mg/dL * H DL Cholesterol 54 >39 - mg/dL * L DL Cholesterol (Calculation) 88 <130 - mg/d L * L DL/HDL Ratio 1.6 <3.3 - Ratio * N on-HDL Cholesterol 102 <130 - mg/dL * T riglycerides 72 <150 - mg/dL * Giselle Blood 05/27/2025 08:17:53 AM EDT > See phone encounter 3.?Others? Refill Omeprazole Capsule Delayed Release, 40 MG, Take 1 capsule by mouth once daily for 90 days, 90 days, 90 Capsule, Refills 1.?? * Procedure Codes: G 8420 BMI<30 AND >=22 CALC & DOCU, G8950 PREHTN/HTN BP DOC INDCD F/U DOC, G8752 MOST RECENT SYSTOLIC BP < 140MM HG, G8754 MOST RECENT DIASTOLIC BP < 90MM HG * Follow Up: p rn * Images: Billing Information: * Visit Code: 61828 Office Visit, Est Pt., Level 4. * Procedure Codes: G8420 BMI<30 AND >=22 CALC & DOCU. G8950 PREHTN/HTN BP DOC INDCD F/U DOC. G8752 MOST RECENT SYSTOLIC BP < 140MM HG. G8754 MOST RECENT DIASTOLIC BP < 90MM HG. * Electronic signature of Giselle Blood MD on 07/23/2025 at 10:50 AM EDT Sign off status: Pending * Provider: Giselle Blood M.D. Date: 0 05/25/2025 Generated for Bryce vogel/Miya/eTransmitting on: 0 07/23/2025 10:50 AM EDT History and Physical Notes * HPI (History of Present Illness) Category Sub-Category Detail Notes Category Not es Psychology She continues t o follow with [facility] Behavioral health and remained stable on her current medical regimen. HPI Patient is here toda y for complete physical. Pt states she is doing and denies any new concerns. Pt is fasting Examination Category Sub-Category Detail Notes Category Not es Cardiology Lungs: clear, no rales or wheezes HEENT: sclera and conjuncti va clear, PERRLA, TM's normal, translucent Heart sounds: RRR, normal S1, S2 Abdomen: positive BS, soft, n ontender Carotid upstroke: normal, no bruits Extremities: no leg edema Murmur, click , gallop: none General Appearance: pleasant, NAD
--- OUTSIDE RECORDS SUMMARY | 2025-07-23 10:51 | XMS_ITS | Clinical Summary ---
Author Organization [facility] Address [address] [place] [address] Care Team Providers Care Medical Secretary Teacher Name Role Phone Trevor Shah MD Primary Care Provider [phone] Social History Tobacco Use Types Packs/Day Years [...] - season) 2024 INFLUENZA VACCINE 08/18/2025 Insurance [facility] PPO Care Teams Medical Secretary Teacher Relationship Specialty Start Date End Date Trevor Shah MD [address] [place] [facility] [address] [place] [id number] PCP - General Family Medicine 10/22/22
--- OUTSIDE RECORDS SUMMARY | 2025-07-23 10:51 | XMS_ITS | Patient Health Record ---
Author Organization [facility] Address [address] [place] [id number] Care Team Providers Care Publications Writer Name Role Phone Giselle Blood Primary Care Provider [phone] PabloTrevor Unavailable [phone] Karen Cisneros Unavailable [phone] Bernice Flores Unavailable [phone] Allergies No Known Allergies Results Component Value [...] - 38 plat 259 100 - 400 P-Comprehensive Metabolic Pa tyler (CMP) Reviewed date:05/27/2025 08:18:13 AM Interpretation:bun 27, alk phos 133 Performing Lab: Notes/Report: Test performed by [facility] [address] [place] [address] , [address], [place] [address] Remi Manley MD, Superintendent Institution CLIA: [id number] Sodium 142 135-145 mmol/L Potassium 4.4 3.5-5.3 [...] Interpretation:Normal Performing Lab: Notes/Report: Test performed by [facility], [address] , [address], [place] [address] Remi Manley MD, Superintendent Institution CLIA: [id number] Cholesterol 156 <200 mg/dL Triglycerides 72 <150 [...] Results: 88 Units: mg/dL % Change: - Pulmonary Function Complete Reviewed date:11/26/2024 12:35:24 PM Interpretation: Performing Lab: Notes/Report: CXR Reviewed date:11/05/2024 09:17:03 AM Interpretation: Performing Lab: Notes/Report: CBC Fingerstick (in house) Reviewed date:11/04/2024 12:42:07 [...] - 38 plat 297 100 - 400 CHARLES Reviewed date:04/01/2025 03:54:05 PM Interpretation: Performing [...] 02:03:04 PM Interpretation:Normal Performing Lab: Notes/Report: Normal Reason For Referral No Information Medications Medication [...] W/U Status Risk Notes Problem Essential hypertension (64525493) Essential (primary) hypertension (I10) Active confirmed Problem Essential hypertension (47791615) Essential hypertension (I10) Active confirmed Problem Anxiety (15729634) Anxiety (F41.9) Active confi rmed Problem Generalized anxiety disorder (20112558) Generalized anxiety disorder (F41.1) Active confirmed Problem Nausea (446736364) Nausea (R11.0) Active confir med Problem History of cholecystectomy (699012002) Status post laparoscopic cholecystectomy (Z90.49) Active confirmed Problem Panic attack (565102562) Panic attack (F41.0) Active confirmed Problem Atrophic gastritis (37176386) Chronic gastritis without bleeding, unspecified gastritis type (K29.50) Active confirmed Problem Gastric ulcer without hemorrhage, without perforation AND without obstruction (66343348) Gastric ulcer, unspecified chronicity, unspecified whether gastric ulcer hemorrhage or perforation present (K25.9) Active confirmed Problem Cholelithiasis AND cholecystitis without obstruction (disorder) (04665548) Calculus of gallbladder with cholecystitis without biliary obstruction, unspecified cholecystitis acuity (K80.10) Active confirmed Problem Gastroesophageal reflux disease (700380457) Gastroesophageal reflux disease, unspecified whether esophagitis present (K21.9) Active confirmed Vital Signs Heart Rate 56 /min 05/25/2025 Blood pressure diastolic 74 mm Hg 05/25/2025 Height 67 in 05/25/2025 Blood pressure systolic 122 mm Hg 05/25/2025 Weight 178.6 lbs 05/25/2025 BMI 27.97 kg/m2 05/25/2025 Encounters Encounter [facility] Date [facility] [address] [place] [id number] 07/27/2024 Karen Joseond Generalized anxiety disorder F41.1 ; Essential hypertension I10 ; Depression, unspecified depression type F32.A ; Gastroesophageal reflux disease, unspecified whether esophagitis present K21.9 ; Encounter for immunization Z23 ; Nausea R11.0 ; Tobacco use disorder Z72.0 and Well adult exam Z00.00 [facility] [address] [place] [id number] 10/14/2024 Bernice Crowdy Acute URI J06.9 and Bronchitis J40 [facility] [address] [place] [id number] 11/04/2024 Bernice Crowdy Chronic cough R05.3 [facility] [address] [place], [place] [id number] 03/26/2025 Bernice Crowdy Generalized anxiety disorder F41.1 and BMI 26.0-26.9,adult Z68.26 [facility] [address] [facility] [address] [place], [place] [id number] 04/30/2025 Bernice Crowdy Acute URI J06.9 ; Bronchitis J40 ; Pain in right lower leg M79.661 ; Pain in left lower leg M79.662 and BMI 27.0-27.9,adult Z68.27 [facility] [address] [place] [id number] 05/25/2025 R Emerson Blood Essential hypertensi on I10 ; Generalized anxiety disorder F41.1 ; Screening for lipid disorders Z13.220 and BMI 27.0-27.9,adult Z68.27 [facility] [address] [facility] [address] [place], [place] [id number] 05/11/2025 R Emerson Storyt [facility] [address] [place], [place] [id number] 11/05/2024 Bernice Flores [facility] [address] [place], [place] [id number] 11/26/2024 Bernice Flores [facility] [address] [place], [place] [id number] 01/11/2025 R Emerson Caitie Gastroesophageal ref lux disease, unspecified whether esophagitis present K21.9 [facility] [address] [place], [place] [id number] 01/29/2025 Bernice Flores [facility] [address] [place], [place] [id number] 02/24/2025 R Emerson Caitie Essential hypertensi on I10 [facility] [address] [place], [place] [id number] 03/26/2025 Trevor Hendley [facility] [address] [place], [place] [id number] 04/05/2025 R Emerson Caitie Essential hypertensi on I10 [facility] [address] [place], [place] [id number] 05/11/2025 R Emerson Caitie Essential hypertensi on I10 [facility] [address] [place], [place] [id number] 05/27/2025 R Emerson Caitei Assessments Encounter Date Diagnosis (ICD Code) Assessment Notes Treatment Notes Treatment Clinical Notes Section Notes 07/27/2024 Essential hypertension (ICD-10 - I10) 10/14/2024 [...] Other Mamm and cologuard were ordered by PERFORMANCE TEST ENGINEER Plan Of Treatment Pending Test Test Name Order Date CT Scan : Abdomen & Pelvis w & w/o contr ast 05/11/2024 Insurance Providers Payer Name Payer Address Payer Phone Subscriber Number Group Number Insured Name Patient Relationship to Insured Coverage Start Date Coverage End Date [employer]IELD [address] [place] [address] [id number] EDNA OCONNOR Self - patient is the insured Medications Administered Medication Instructions Date of Administration Dosage Notes Dexamethasone 01/17/2022 1 mL Dexamethasone 03/15/2022 1 mL Dexamethasone 06/15/2022 1 mL Medical (General) History Medical History History ICD Code Hypertension Anxiety Ulcers Tobacco Addiction Follows with Dr. Gaines for PERFORMANCE TEST ENGINEER care Recovering Drug Addict Surgical History Surgery Date(Month/Year) Gastric Bypass 2009 Rt Hip Replacement -Dr Lowe 10/25/2022 Cholecysectomy 09/2022
--- NOTE | 2025-07-23 11:00 | MM_ITS ---
PROCEDURE INFORMATION: Exam: MG Bilateral Screening 3D Mammography Exam date and time: 07/23/2025 10:54 AM Age: 50 years old Clinical indication: Screening examination TECHNIQUE: Imaging protocol: Bilateral Screening tomosynthesis and 2D mammography including computer-aided detection (CAD) when performed. COMPARISON: 1. MG MM DIG SCREENING MAMM BI W/CAD 03/12/2024 10:18 AM 2. MG MM DIG SCREENING MAMM BI W/CAD 07/19/2022 7:50 AM FINDINGS: MAMMOGRAPHY: Breast composition: The breasts are almost entirely fatty. Mass: None. Architectural distortion: None. Calcifications: No suspicious calcifications. Asymmetric density: None. Skin thickening: None. Axillary adenopathy: None. IMPRESSION: No mammographic evidence of malignancy. Annual screening is recommended unless otherwise clinically indicated. ASSESSMENT: BI-RADS Category 1: Negative.
== END 2025-07-23 23:59 | disposition home or self-care (01) ==
LOC: RAD 10:48
PROVIDERS: PCP Physician Assistant; Visit Provider Nurse Practitioner Obstetrics & Gynecology
DX: Z12.31 Encounter for screening mammogram for malignant neoplasm of breast (principal)
CPT/HCPCS: 77063; 77067